=== PATIENT | female | born 1985 | race Hispanic/Latino ===

== ENCOUNTER → 2023-11-15 | Emergency (ER) | payer OTHER ==
--- OUTSIDE RECORDS SUMMARY | 2023-11-15 14:39 | XMS REPORT | Continuity of Care Document ---
Author Name Unknown Address [address] [facility] [address] [place] [address] [facility] Address [address] [facility] [address] [place] [address] Care Team Providers Care Tooth Clerk Name Role Phone Stacey Annie MURPHY Primary Care Physician Zeinab Granado Attending Clinician Unavailable LORENA WOODY Attending Clinician Unavailable DANIA LAKE Attending Clinician Unavailable DANIA LAKE Attending Clinician Unavailable MONSERRAT DONG Attending Clinician Unavailable Srinivasan Castillo PT Attending Clinician Unavailable Monserrat Dong MD Attending Clinician [phone] Dominga Wolff Attending Clinician [phone] Unknown, Attending Attending Clinician Unavailab DOMINGA Cardona Attending Clinician Unavailable Doctor Unassigned, [place] Attending Clinician [facility] RADIOLOGY Attending Clinician Unavailable Radiology Attending Clinician Unavailable LORENA WOODY Admitting Clinician Unavailable JAMILAH, LEANDRA Admitting Clinician Unavailable Payers Payer Name Policy Type Policy Number Effective Date Expirati on Date Source [place] [employer] [id number] 2023 00:00:00 Problems Condition Name Condition Details Condition Category Status Onset Date Resolution Date Last Treatment Date Treating Clinician Comments Source 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 01-18 00:00: 00 [facility] [id number] Positive depression screening Problem [facility] [id number] Need for influenza vaccinatio n Problem [facility] [id number] Sciatica of right side Problem [facility] [id number] Obesity (BMI 35.0-39.9 without comorbidit y) Problem [facility] Vitamin D deficiency Vitamin D deficiency Problem [facility] [id number] Moderate major depression Problem [facility] [id number] Plantar fasciitis, right Problem [facility] Allergies, Adverse Reactions, Alerts Allergy Name Allergy Type Status Severity Reaction(s) Onset Date Inactive Date Treating Clinician Comments Source ADHESIVE Drug Class Active Hives 2022-08 00:00: 00 [facility] LATEX, NATURAL RUBBER Drug Class Active Hives 2022-08 00:00: 00 [facility] Adhesive Propensi ty to adverse reaction s Active Itching 2022-08 00:00: 00 [facility] Latex, Natural Rubber Propensi ty to adverse reaction s Active Itching 2022-08 00:00: 00 [facility] PENICILL INS Drug Class Active Other-Cmnt 03-28 00:00: 00 [facility] Penicill ins Propensi ty to adverse reaction s Active Other - See comments 03-28 00:00: 00 Reported severe yeast infection [facility] Penicill ins - CLASS Propensi ty to adverse reaction to drug Active 04-20 00:00: 00 Penicill ins Propensi ty to adverse reaction to drug Active 01-12 00:00: 00 NO KNOWN ALLERGIE S Drug Class Active [facility] Social History Social Habit Start Date Stop Date Quantity Comments Source Gender identity [facility] of [facility] Sex Assigned At [facility] Tobacco use and exposure 2023-03-28 00:00:00 2023-03-28 00:00:00 Smokeless tobacco non-user [facility] History of Social function 2023-03-28 00:00:00 2023-03-28 00:00:00 [facility] Smoking Status Start Date Stop Date Source Tobacco smoking consumption unknown [facility] Never smoked tobacco [facility] Medications Ordered Medication Name Filled Medication Name Start Date Stop Date Current Medication? Ordering Clinician Indication Dosage Frequency Signature (SIG) Comments Components Source meloxicam 15 mg tablet 10-17 00:00: 00 Yes [id number] 15mg Take 1 tablet by mouth as needed for Inflammati on. [facility] meloxicam 15 mg tablet 10-17 00:00: 00 Yes [id number] 15mg Take 1 tablet by mouth as needed for Inflammati on. [facility] gabapentin 100 mg capsule 2022-08 00:00: 00 Yes [id number] 100mg Take 1 capsule by mouth in the morning and 1 capsule at noon and 1 capsule in the evening. [facility] gabapentin 100 mg capsule 2022-08 00:00: 00 Yes [id number] 100mg Take 1 capsule by mouth in the morning and 1 capsule at noon and 1 capsule in the evening. [facility] gabapentin 100 mg capsule 2022-08 00:00: 00 Yes [id number] 100mg Take 1 capsule by mouth in the morning and 1 capsule at noon and 1 capsule in the evening. [facility] gabapentin 100 mg capsule 2022-08 00:00: 00 Yes [id number] 100mg Take 1 capsule by mouth in the morning and 1 capsule at noon and 1 capsule in the evening. [facility] gabapentin 100 mg capsule 2022-08 00:00: 00 Yes [id number] 100mg Take 1 capsule by mouth in the morning and 1 capsule at noon and 1 capsule in the evening. [facility] gabapentin 100 mg capsule 2022-08 2 00:00: 00 Yes [id number] 100mg Take 1 capsule by mouth in the morning and 1 capsule at noon and 1 capsule in the evening. [facility] gabapentin 100 mg capsule 2022-08 2 00:00: 00 Yes [id number] 100mg Take 1 capsule by mouth in the morning and 1 capsule at noon and 1 capsule in the evening. [facility] gabapentin 100 mg capsule 2022-08 2- 00:00: 00 Yes [id number] 100mg Take 1 capsule by mouth in the morning and 1 capsule at noon and 1 capsule in the evening. [facility] azithromyci n 500 mg tablet 2022-08 00:00: 00 07-06 05:59 :00 No [id number] 500mg Take 1 tablet by mouth in the morning for 5 days. [facility] gabapentin 300 mg capsule 2022-08 0- 00:00: 00 Yes [id number] 300mg Take 1 capsule by mouth in the morning and 1 capsule at noon and 1 capsule in the evening. [facility] gabapentin 300 mg capsule 2022-08 0- 00:00: 00 Yes [id number] 300mg Take 1 capsule by mouth in the morning and 1 capsule at noon and 1 capsule in the evening. [facility] gabapentin 300 mg capsule 2022-08 0- 00:00: 00 Yes [id number] 300mg Take 1 capsule by mouth in the morning and 1 capsule at noon and 1 capsule in the evening. [facility] gabapentin 300 mg capsule 2022-08 0- 00:00: 00 Yes [id number] 300mg Take 1 capsule by mouth in the morning and 1 capsule at noon and 1 capsule in the evening. [facility] gabapentin 300 mg capsule 2022-08 0- 00:00: 00 Yes [id number] 300mg Take 1 capsule by mouth in the morning and 1 capsule at noon and 1 capsule in the evening. [facility] gabapentin 300 mg capsule 2022-08 0- 00:00: 00 Yes [id number] 300mg Take 1 capsule by mouth in the morning and 1 capsule at noon and 1 capsule in the evening. [facility] gabapentin 300 mg capsule 2022-08 0- 00:00: 00 Yes [id number] 300mg Take 1 capsule by mouth in the morning and 1 capsule at noon and 1 capsule in the evening. [facility] gabapentin 300 mg capsule 2022-08 0- 00:00: 00 Yes [id number] 300mg Take 1 capsule by mouth in the morning and 1 capsule at noon and 1 capsule in the evening. [facility] gabapentin 300 mg capsule 2022-08 0 00:00: 00 Yes [id number] 300mg Take 1 capsule by mouth in the morning and 1 capsule at noon and 1 capsule in the evening. [facility] gabapentin 300 mg capsule 2022-08 0 00:00: 00 Yes [id number] 300mg Take 1 capsule by mouth in the morning and 1 capsule at noon and 1 capsule in the evening. [facility] gabapentin 300 mg capsule 2022-08 0 00:00: 00 Yes [id number] 300mg Take 1 capsule by mouth in the morning and 1 capsule at noon and 1 capsule in the evening. [facility] gabapentin 300 mg capsule 2022-08 0 00:00: 00 Yes [id number] 300mg Take 1 capsule by mouth in the morning and 1 capsule at noon and 1 capsule in the evening. [facility] meloxicam 15 mg tablet 05-03 14:21: 57 05-03 00:00 :00 No 15mg Take 1 tablet by mouth as needed for Pain (scale 4-6). [facility] meloxicam 15 mg tablet 05-03 14:21: 57 05-03 00:00 :00 No 15mg Take 1 tablet by mouth as needed for Pain (scale 4-6). [facility] meloxicam 15 mg tablet 05-03 00:00: 00 Yes [id number] 15mg Take 1 tablet by mouth as needed for Inflammati on. [facility] meloxicam 15 mg tablet 3-0 05-03 00:00: 00 Yes [id number] 15mg Take 1 tablet by mouth as needed for Inflammati on. [facility] mg tablet 3-0 05-03 00:00: 00 Yes [id number] 15mg Take 1 tablet by mouth as needed for Inflammati on. [facility] meloxicam 15 mg tablet 2022-0 05-03 00:00: 00 Yes [id number] 15mg Take 1 tablet by mouth as needed for Inflammati on. [facility] meloxicam 15 mg tablet 2022-0 05-03 00:00: 00 Yes [id number] 15mg Take 1 tablet by mouth as needed for Inflammati on. [facility] meloxicam 15 mg tablet 3-0 05-03 00:00: 00 Yes [id number] 15mg Take 1 tablet by mouth as needed for Inflammati on. [facility] meloxicam 15 mg tablet 2022-0 05-03 00:00: 00 Yes [id number] 15mg Take 1 tablet by mouth as needed for Inflammati on. [facility] meloxicam 15 mg tablet 2022-0 05-03 00:00: 00 Yes [id number] 15mg Take 1 tablet by mouth as needed for Inflammati on. [facility] meloxicam 15 mg tablet 3-0 05-03 00:00: 00 Yes [id number] 15mg Take 1 tablet by mouth as needed for Inflammati on. [facility] meloxicam 15 mg tablet 3-0 05-03 00:00: 00 Yes [id number] 15mg Take 1 tablet by mouth as needed for Inflammati on. [facility] meloxicam 15 mg tablet 3-0 05-03 00:00: 00 Yes [id number] 15mg Take 1 tablet by mouth as needed for Inflammati on. [facility] meloxicam 15 mg tablet 3-0 05-03 00:00: 00 Yes [id number] 15mg Take 1 tablet by mouth as needed for Inflammati on. [facility] meloxicam 15 mg tablet 3-0 9-05 00:00: 00 Yes [id number] 15mg Take 1 tablet by mouth as needed for Inflammati on. [facility] meloxicam 15 mg tablet 2022-0 9-05 00:00: 00 10-17 00:00 :00 No [id number] 15mg Take 1 tablet by mouth as needed for Inflammati on. [facility] meloxicam 15 mg tablet 2022-0 9-05 00:00: 00 10-17 00:00 :00 No [id number] 15mg Take 1 tablet by mouth as needed for Inflammati on. [facility] gabapentin 100 mg capsule 2022-0 05-03 00:00: 00 06-17 04:59 :00 No [id number] Take 1 capsule by mouth 3 (three) times daily for 7 days, THEN 2 capsules 3 (three) times daily for 7 days, THEN 3 capsules 3 (three) times daily for 30 days. [facility] gabapentin 100 mg capsule 2022-0 05-03 00:00: 06-17 04:59 :00 No [id number] Take 1 capsule by mouth 3 (three) times daily for 7 days, THEN 2 capsules 3 (three) times daily for 7 days, THEN 3 capsules 3 (three) times daily for 30 days. [facility] gabapentin 100 mg capsule 3-0 05-03 00:00: 00 06-17 04:59 :00 No [id number] Take 1 capsule by mouth 3 (three) times daily for 7 days, THEN 2 capsules 3 (three) times daily for 7 days, THEN 3 capsules 3 (three) times daily for 30 days. [facility] gabapentin 100 mg capsule 3-0 9-05 00:00: 05-31 00:00 :00 No [id number] Take 1 capsule by mouth 3 (three) times daily for 7 days, THEN 2 capsules 3 (three) times daily for 7 days, THEN 3 capsules 3 (three) times daily for 30 days. [facility] meloxicam 15 mg tablet 03-28 15:33: 51 Yes 15mg Take 1 tablet by mouth as needed for Pain (scale 4-6). [facility] meloxicam 15 mg tablet 03-28 15:33: 51 Yes 15mg Take 1 tablet by mouth as needed for Pain (scale 4-6). [facility] meloxicam 15 mg tablet 03-28 15:33: 51 Yes 15mg Take 1 tablet by mouth as needed for Pain (scale 4-6). [facility] meloxicam 15 mg tablet 03-28 15:33: 51 Yes 15mg Take 1 tablet by mouth as needed for Pain (scale 4-6). [facility] TAKE 1 TO 2 CAPSULES BY MOUTH EVERY 8 HOURS NEEDED FOR COUGH 3-0 1-09 00:00: 00 No TAKE 1 TO 2 CAPSULES BY MOUTH EVERY 8 HOURS NEEDED FOR COUGH 2021-1 09-27 00:00: 00 No TAKE 1 TO 2 CAPSULES BY MOUTH EVERY 8 HOURS NEEDED FOR COUGH 2-0 04-19 00:00: 00 No 100 TAKE 1 TO 2 CAPSULES BY MOUTH EVERY 8 HOURS NEEDED FOR COUGH 2-0 04-19 00:00: 00 No 100 TAKE 1 TO 2 CAPSULES BY MOUTH EVERY 8 HOURS NEEDED FOR COUGH 2-0 04-19 00:00: 00 No 100 dexamethaso ne 6 mg tablet 2020-08 00:00: 00 No 1mg azithromyci n 250 mg tablet 2020-08 00:00: 00 No mg benzonatate 100 mg capsule 2020-08 00:00: 00 No 12mg Bromfed DM 2 mg-30 mg-10 mg/5 mL oral syrup 2020-08 00:00: 00 No 5mg/5 mL Dose Unknown 2020-08 00:00: 00 No azithromyci n 250 mg tablet 2020-08 00:00: 00 No mg benzonatate 100 mg capsule 2020-08 00:00: 00 No 12mg Bromfed DM 2 mg-30 mg-10 mg/5 mL oral syrup 2020-08 00:00: 00 No 5mg/5 mL Dose Unknown 2020-08 00:00: 00 No azithromyci n 250 mg tablet 2020-08 00:00: 00 No mg benzonatate 100 mg capsule 2020-08 00:00: 00 No 12mg Bromfed DM 2 mg-30 mg-10 mg/5 mL oral syrup 2020-08 00:00: 00 No 5mg/5 mL nitrofurant oin macrocrysta l 100 mg capsule 02-27 00:00: 00 No 1mg nitrofurant oin macrocrysta l 100 mg capsule 02-27 00:00: 00 No 1mg nitrofurant oin macrocrysta l 100 mg capsule 02-27 00:00: 00 No 1mg Macrobid 100 mg capsule 03-21 00:00: 00 No 1mg Macrobid 100 mg capsule 03-21 00:00: 00 No 1mg Macrobid 100 mg capsule 03-21 00:00: 00 No 1mg citalopram 20 mg tablet 02-02 00:00: 00 No 51mg citalopram 20 mg tablet 02-02 00:00: 00 No 51mg citalopram 20 mg tablet 02-02 00:00: 00 No 51mg metronidazo le 500 mg tablet 01-17 00:00: 00 No 1mg metronidazo le 500 mg tablet 01-17 00:00: 00 No 1mg metronidazo le 500 mg tablet 01-17 00:00: 00 No 1mg gabapentin 100 mg capsule 01-12 00:00: 00 No 1mg gabapentin 100 mg capsule 01-12 00:00: 00 No 1mg gabapentin 100 mg capsule 01-12 00:00: 00 No 1mg Gabapentin 300 MG Gabapentin 300 MG No 1{capsu le} TID Gabapentin 300 MG Meloxicam 15 MG Meloxicam 15 MG No 1{table t} QD Meloxicam 15 MG Gabapentin 300 MG Gabapentin 300 MG No 1{capsu le} TID Gabapentin 300 MG Meloxicam 15 MG Meloxicam 15 MG No 1{table t} QD Meloxicam 15 MG Gabapentin 300 MG Gabapentin 300 MG No 1{capsu le} TID Gabapentin 300 MG Meloxicam 15 MG Meloxicam 15 MG No 1{table t} QD Meloxicam 15 MG Gabapentin 300 MG Gabapentin 300 MG No 1{capsu le} TID Gabapentin 300 MG Meloxicam 15 MG Meloxicam 15 MG No 1{table t} QD Meloxicam 15 MG Gabapentin 300 MG Gabapentin 300 MG No 1{capsu le} TID Gabapentin 300 MG Meloxicam 15 MG Meloxicam 15 MG No 1{table t} QD Meloxicam 15 MG Immunizations Ordered Immunization Name Filled Immunization Name Date Status Comments Source Fluarix (IIV4) - SDS - 0.5mL Fluarix (IIV4) - SDS - 0.5mL Unknown Completed [facility] Fluarix (IIV4) - SDS - 0.5mL Fluarix (IIV4) - SDS - 0.5mL Unknown Completed [facility] Fluarix (IIV4) - SDS - 0.5mL Fluarix (IIV4) - SDS - 0.5mL Unknown Completed [facility] Fluarix (IIV4) - SDS - 0.5mL Fluarix (IIV4) - SDS - 0.5mL Unknown Completed [facility] Fluarix (IIV4) - SDS - 0.5mL Fluarix (IIV4) - SDS - 0.5mL Unknown Completed [facility] Vital Signs Vital Name Observation Time Observation Value Comments S prieto Systolic blood pressure 2023-10-17 19:04:00 116 mm[Hg] [facility] Diastolic blood pressure 2023-10-17 19:04:00 78 mm[Hg] [facility] Heart rate 2023-10-17 19:04:00 70 /min [facility] Body height 2023-10-17 19:04:00 160 cm [facility] Body weight 2023-10-17 19:04:00 92.171 kg [facility] BMI 2023-10-17 19:04:00 36.00 kg/m2 [facility] Oxygen saturation in Arterial blood by Pulse oximetry 2023-10-17 19:04:00 98 /min [facility] Systolic blood pressure 2023-08-02 20:24:00 113 mm[Hg] [facility] Diastolic blood pressure 2023-08-02 20:24:00 77 mm[Hg] [facility] Heart rate 2023-08-02 20:24:00 84 /min [facility] Respiratory rate 2023-08-02 20:24:00 18 /min [facility] Body height 2023-08-02 20:24:00 160 cm [facility] Body weight 2023-08-02 20:24:00 90.855 kg [facility] BMI 2023-08-02 20:24:00 35.48 kg/m2 [facility] Oxygen saturation in Arterial blood by Pulse oximetry 2023-08-02 20:24:00 98 /min [facility] height 2023-08-01 15:20:00 63.00 [in_i] Com [facility] weight 2023-08-01 15:20:00 203.2 [lb_av] Co mmon [facility] temperature 2023-08-01 15:20:00 98.1 [degF] Com [facility] bmi 2023-08-01 15:20:00 35.99 kg/m2 Comm on [facility] oximetry 2023-08-01 15:20:00 95 % Commo n [facility] respiratory rate 2023-08-01 15:20:00 15 /min Common [facility] blood pressure systolic 2023-08-01 15:20:00 123 mm[Hg] [facility] blood pressure diastolic 2023-08-01 15:20:00 70 mm[Hg] [facility] height 2023-07-12 09:00:00 63.00 [in_i] Com [facility] weight 2023-07-12 09:00:00 202.6 [lb_av] Co mmon [facility] temperature 2023-07-12 09:00:00 98.2 [degF] Com mon [facility] bmi 2023-07-12 09:00:00 35.89 kg/m2 Comm on [facility] oximetry 2023-07-12 09:00:00 95 % Commo n [facility] respiratory rate 2023-07-12 09:00:00 15 /min [facility] blood pressure systolic 2023-07-12 09:00:00 120 mm[Hg] [facility] blood pressure diastolic 2023-07-12 09:00:00 81 mm[Hg] [facility] Systolic blood pressure 2023-06-30 18:44:00 114 mm[Hg] [facility] Diastolic blood pressure 2023-06-30 18:44:00 81 mm[Hg] [facility] Heart rate 2023-06-30 18:44:00 81 /min [facility] Body temperature 2023-06-30 18:44:00 36.39 Soni [facility] Respiratory rate 2023-06-30 18:44:00 16 /min [facility] Body height 2023-06-30 18:44:00 160 cm [facility] Body weight 2023-06-30 18:44:00 90.583 kg [facility] BMI 2023-06-30 18:44:00 35.38 kg/m2 [facility] Oxygen saturation in Arterial blood by Pulse oximetry 2023-06-30 18:44:00 97 /min [facility] Systolic blood pressure 2023-05-03 18:56:00 109 mm[Hg] [facility] Diastolic blood pressure 2023-05-03 18:56:00 73 mm[Hg] [facility] Heart rate 2023-05-03 18:56:00 64 /min [facility] Body height 2023-05-03 18:56:00 160 cm [facility] Body weight 2023-05-03 18:56:00 91.037 kg [facility] BMI 2023-05-03 18:56:00 35.55 kg/m2 [facility] Systolic blood pressure 2023-03-28 20:29:00 110 mm[Hg] [facility] Diastolic blood pressure 2023-03-28 20:29:00 76 mm[Hg] [facility] Heart rate 2023-03-28 20:29:00 83 /min [facility] Respiratory rate 2023-03-28 20:29:00 18 /min [facility] Body height 2023-03-28 20:29:00 160 cm [facility] Body weight 2023-03-28 20:29:00 90.946 kg [facility] BMI 2023-03-28 20:29:00 35.52 kg/m2 [facility] Oxygen saturation in Arterial blood by Pulse oximetry 2023-03-28 20:29:00 97 /min [facility] BP Systolic 2022-09-02 11:33:00 117 mm[Hg] BP Diastolic 2022-09-02 11:33:00 81 mm[Hg] Weight Measured 2022-09-02 11:33:00 204.60 pounds Height Measured 2022-09-02 11:33:00 64.00 inches Body Temperature 2022-09-02 11:33:00 98.10 degrees Heart Rate 2022-09-02 11:33:00 91.00 /min Respiratory Rate 2022-09-02 11:33:00 18.00 /min BP Systolic 2022-04-20 14:46:00 107 mm[Hg] BP Diastolic 2022-04-20 14:46:00 72 mm[Hg] Weight Measured 2022-04-20 14:46:00 196.60 pounds Height Measured 2022-04-20 14:46:00 64.00 inches Body Temperature 2022-04-20 14:46:00 97.40 degrees Heart Rate 2022-04-20 14:46:00 84.00 /min Respiratory Rate 2022-04-20 14:46:00 BP Systolic 2021-02-27 10:13:00 106 mm[Hg] BP Diastolic 2021-02-27 10:13:00 71 mm[Hg] Weight Measured 2021-02-27 10:13:00 191.60 pounds Height Measured 2021-02-27 10:13:00 64.00 inches Body Temperature 2021-02-27 10:13:00 98.90 degrees Heart Rate 2021-02-27 10:13:00 71.00 /min Respiratory Rate 2021-02-27 10:13:00 Respiratory Rate 2020-10-23 11:06:00 17.00 /min BP Systolic 2020-10-23 11:06:00 125 mm[Hg] BP Diastolic 2020-10-23 11:06:00 77 mm[Hg] Weight Measured 2020-10-23 11:06:00 188.80 pounds Height Measured 2020-10-23 11:06:00 64.00 inches Body Temperature 2020-10-23 11:06:00 98.20 degrees Heart Rate 2020-10-23 11:06:00 63.00 /min BP Systolic 2019-02-15 17:44:00 112 mm[Hg] BP Diastolic 2019-02-15 17:44:00 80 mm[Hg] Weight Measured 2019-02-15 17:44:00 191.00 pounds Height Measured 2019-02-15 17:44:00 64.00 inches Body Temperature 2019-02-15 17:44:00 98.50 degrees Heart Rate 2019-02-15 17:44:00 73.00 /min Respiratory Rate 2019-02-15 17:44:00 BP Systolic 2018-11-20 10:27:00 107 mm[Hg] BP Diastolic 2018-11-20 10:27:00 68 mm[Hg] Weight Measured 2018-11-20 10:27:00 197.40 pounds Height Measured 2018-11-20 10:27:00 64.00 inches Body Temperature 2018-11-20 10:27:00 98.70 degrees Heart Rate 2018-11-20 10:27:00 75.00 /min Respiratory Rate 2018-11-20 10:27:00 16.00 /min BP Systolic 2018-09-01 08:44:00 113 mm[Hg] BP Diastolic 2018-09-01 08:44:00 66 mm[Hg] Weight Measured 2018-09-01 08:44:00 193.40 pounds Height Measured 2018-09-01 08:44:00 64.00 inches Body Temperature 2018-09-01 08:44:00 98.00 degrees Heart Rate 2018-09-01 08:44:00 61.00 /min Respiratory Rate 2018-09-01 08:44:00 16.00 /min BP Systolic 2018-03-21 08:06:00 122 mm[Hg] BP Diastolic 2018-03-21 08:06:00 81 mm[Hg] Weight Measured 2018-03-21 08:06:00 192.40 pounds Height Measured 2018-03-21 08:06:00 64.00 inches Body Temperature 2018-03-21 08:06:00 98.20 degrees Heart Rate 2018-03-21 08:06:00 73.00 /min Respiratory Rate 2018-03-21 08:06:00 16.00 /min BP Systolic 2018-03-09 11:35:00 109 mm[Hg] BP Diastolic 2018-03-09 11:35:00 73 mm[Hg] Weight Measured 2018-03-09 11:35:00 188.80 pounds Height Measured 2018-03-09 11:35:00 64.00 inches Body Temperature 2018-03-09 11:35:00 98.80 degrees Heart Rate 2018-03-09 11:35:00 78.00 /min Respiratory Rate 2018-03-09 11:35:00 16.00 /min BP Systolic 2017-02-02 09:14:00 113 mm[Hg] BP Diastolic 2017-02-02 09:14:00 73 mm[Hg] Weight Measured 2017-02-02 09:14:00 190.80 pounds Height Measured 2017-02-02 09:14:00 64.00 inches Body Temperature 2017-02-02 09:14:00 98.10 degrees Heart Rate 2017-02-02 09:14:00 66.00 /min Respiratory Rate 2017-02-02 09:14:00 16.00 /min BP Systolic 2017-01-14 13:22:00 108 mm[Hg] BP Diastolic 2017-01-14 13:22:00 74 mm[Hg] Weight Measured 2017-01-14 13:22:00 187.40 pounds Height Measured 2017-01-14 13:22:00 64.00 inches Body Temperature 2017-01-14 13:22:00 98.50 degrees Heart Rate 2017-01-14 13:22:00 73.00 /min Respiratory Rate 2017-01-14 13:22:00 Procedures Procedure Date / Time Performed Performing Clinicia n Source EMG/NCV 2023-09-30 06:01:00 Keaton Soria [facility] POCT SARS-COV-2 ANTIGEN (BINAX NOW) 2023-06-30 18:56:00 Dominga Martinez [facility] POCT MOLECULAR STREP 2023-06-30 18:48:00 Lauren, Uday martinez [facility] REFERRAL- REQUEST/RESPONSE 2023-03-16 05:01:00 Doctor Unassigned, [place] [facility] MR LUMBAR SPINE WO CONTRAST 2023-03-15 16:45:00 Requisition, Paper [facility] CONSENT/REFUSAL FOR DIAGNOSIS AND TREATMENT 2023-03-15 15:49:07 Doctor Unassigned, [place] [facility] Plan of Care Planned Activity Planned Date Details Comments Source Goal Plan of Care Note [code = 90607-2] Goal Plan of Care Note [code = 83972-5] Goal Plan of Care Note [code = 88355-6] Goal Plan of Care Note [code = 03072-3] Goal Plan of Care Note [code = 74615-3] Goal Plan of Care Note [code = 12655-7] Goal Plan of Care Note [code = 80006-4] Goal Plan of Care Note [code = 07468-6] Goal Plan of Care Note [code = 96304-8] Goal Plan of Care Note [code = 36697-1] Goal Plan of Care Note [code = 83474-2] Goal Plan of Care Note [code = 19472-7] Goal Plan of Care Note [code = 06081-2] Goal Plan of Care Note [code = 32415-4] Goal Plan of Care Note [code = 10483-2] Goal Plan of Care Note [code = 29051-5] Goal Plan of Care Note [code = 23290-9] Goal Plan of Care Note [code = 76020-0] Goal Plan of Care Note [code = 74923-6] Goal Plan of Care Note [code = 15519-4] Goal Plan of Care Note [code = 27016-4] Goal Plan of Care Note [code = 11296-9] Goal Plan of Care Note [code = 20280-7] Goal Plan of Care Note [code = 48982-1] Goal Plan of Care Note [code = 86556-8] Goal Plan of Care Note [code = 24067-5] Goal Plan of Care Note [code = 92807-2] Goal Plan of Care Note [code = 21541-8] Goal Plan of Care Note [code = 85590-3] Goal Plan of Care Note [code = 78720-9] Goal Plan of Care Note [code = 18040-2] Goal Plan of Care Note [code = 83292-7] Goal Plan of Care Note [code = 71639-7] Goal Plan of Care Note [code = 08428-7] Goal Plan of Care Note [code = 88185-6] Goal Plan of Care Note [code = 57067-2] Goal Plan of Care Note [code = 05376-1] Goal Plan of Care Note [code = 16718-5] Goal Plan of Care Note [code = 53081-6] Goal Plan of Care Note [code = 60053-9] Goal Plan of Care Note [code = 43820-7] Goal Plan of Care Note [code = 63549-2] Goal Plan of Care Note [code = 37804-6] Goal Plan of Care Note [code = 40600-9] Goal Plan of Care Note [code = 19885-4] Goal Plan of Care Note [code = 72218-4] Goal Plan of Care Note [code = 66292-8] Goal Plan of Care Note [code = 69069-7] Goal Plan of Care Note [code = 78134-8] Goal Plan of Care Note [code = 03677-0] Goal Plan of Care Note [code = 72315-6] Goal Plan of Care Note [code = 29259-2] Goal Plan of Care Note [code = 21891-0] Goal Plan of Care Note [code = 45104-2] Goal Plan of Care Note [code = 91285-3] Goal Plan of Care Note [code = 49141-6] Goal Plan of Care Note [code = 91829-8] Goal Plan of Care Note [code = 07622-2] Goal Plan of Care Note [code = 63955-8] Goal Plan of Care Note [code = 54422-0] Goal Plan of Care Note [code = 21788-6] Goal Plan of Care Note [code = 08840-2] Goal Plan of Care Note [code = 01558-0] Goal Plan of Care Note [code = 38392-4] Goal Plan of Care Note [code = 84667-5] Goal Plan of Care Note [code = 88425-4] Goal Plan of Care Note [code = 66572-0] Goal Plan of Care Note [code = 35908-3] Goal Plan of Care Note [code = 50564-1] Goal Plan of Care Note [code = 40064-7] Goal Plan of Care Note [code = 92414-1] Goal Plan of Care Note [code = 18220-5] Goal Plan of Care Note [code = 18940-5] Goal Plan of Care Note [code = 86622-4] Goal Plan of Care Note [code = 07979-9] Goal Plan of Care Note [code = 41495-9] Goal Plan of Care Note [code = 20244-1] Goal Plan of Care Note [code = 45289-9] Goal Plan of Care Note [code = 92280-8] Goal Plan of Care Note [code = 19905-2] Goal Plan of Care Note [code = 10820-0] Encounters Start Date/Time End Date/Time Encounter Type Admission Type Attending [facility] Facility Care Department Encounter ID Source 2023-07-29 09:04:00 [place]patient [place] [facility] [id number] [facility] 2023-07-13 09:35:00 Outpatient LoyZeinab STLC [facility] [id number] [facility] 2023-07-12 08:28:00 Outpatient Loy Zeinab [facility] [id number] [facility] 2023-07-07 14:19:00 Outpatient STLC [facility] [id number] [facility] 2023-02-16 15:24:00 Outpatient STLMLC ST[facility] [id number] [facility] 2023-10-18 00:00:00 2023-10-18 00:00:00 (TEL) STLMLC ST[facility]C [id number] [facility] 2023-10-17 13:00:00 2023-10-17 13:45:22 Outpatient R [facility] [id number] [facility] 2023-10-17 13:00:00 2023-10-17 13:45:22 [facility] 1.2.840.114 350.1.13.10 4.2.7.2.686 [id number] [facility] 2023-10-04 00:00:00 2023-10-04 00:00:00 [facility] 1..840.114 350.1.13.10 4.2.7.2.686 [id number] [facility] 2023-09-30 12:05:56 2023-09-30 23:59:00 Outpatient R JAYA, CHELSIEDigna JAYA [facility] [id number] [facility] 2023-09-30 12:05:56 2023-09-30 23:59:00 Hospital Encounter Jaya [facility] 1.2.840.114 350.1.13.10 4.2.7.2.686 [id number] [facility] 2023-09-08 00:00:00 2023-09-08 00:00:00 [facility] 1..840.114 350.1.13.10 4.2.7.2.686 [id number] [facility] 2023-09-02 11:09:58 2023-09-02 11:09:58 Outpatient SFA [facility] [id number] Juanjose Bailey 2023-08-02 14:00:00 2023-08-02 14:30:00 Office Visit Annalise [facility] 1.2.840.114 350.1.13.10 4.2.7.2.686 [id number] [facility] 2023-08-02 14:00:00 2023-08-02 14:00:00 Outpatient R ANNALISE [facility] [id number] [facility] 2023-08-02 00:00:00 2023-08-02 00:00:00 Telephone [facility] 1.2.840.114 350.1.13.10 4.2.7.2.686 [id number] [facility] 2023-08-01 00:00:00 2023-08-01 00:00:00 PREV VISIT EST AGE 18-39 STLMLC STLMLC [id number] [facility] 2023-07-18 00:00:00 2023-07-18 00:00:00 (TEL) STLMLC STLMLC [id number] [facility] 2023-07-12 00:00:00 2023-07-12 00:00:00 OFFICE VISIT NEW PT LEVEL 3 STLMLC STLMLC [id number] [facility] 2023-07-11 10:30:00 2023-07-11 12:02:00 Outpatient MONSERRAT ACRLISLE [facility] [id number] [facility] 2023-07-11 10:30:00 2023-07-11 11:15:00 Ancillary Visit Srinivasan Castillo Brian A [facility] 1..840.114 350.1.13.10 4.2.7.2.686 [id number] [facility] 2023-06-30 13:20:00 2023-06-30 13:40:00 Urgent Care Dominga Martinez Unknown, Attending [facility] 1..840.114 350.1.13.10 4.2.7.2.686 [id number] [facility] 2023-06-30 13:20:00 2023-06-30 13:20:00 Outpatient R DOMINGA MARTINEZ [facility] [id number] [facility] 2023-06-13 14:30:00 2023-06-13 15:29:40 Outpatient MONSERRAT CARLISLE [facility] [id number] [facility] 2023-06-13 14:30:00 2023-06-13 15:15:00 Ancillary Visit Srinivasan Castillo Brian A [facility] 1..840.114 350.1.13.10 4.2.7.2.686 [id number] [facility] 2023-05-30 00:00:00 2023-05-30 00:00:00 Michael Woody Lorena [facility] 1..840.114 350.1.13.10 4.2.7.2.686 [id number] [facility] 2023-05-16 13:45:00 2023-05-16 14:48:24 Outpatient MONSERRAT CARLISLE [facility] [id number] [facility] 2023-05-16 13:45:00 2023-05-16 14:48:24 Ancillary Visit Srinivasan Castillo Brian A [facility] 1..840.114 350.1.13.10 4.2.7.2.686 [id number] [facility] 2023-05-03 14:00:00 2023-05-03 14:25:35 [facility] [id number] [facility] 2023-05-03 14:00:00 2023-05-03 14:25:35 [facility] 1.84.114 350.1.13.10 4.2.7.2.686 [id number] [facility] 2023-04-25 13:45:00 2023-04-25 14:30:00 Ancillary Visit Srinivasan Castillo Brian A [facility] 1.84.114 350.1.13.10 4.2.7.2.686 [id number] [facility] 2023-04-25 13:45:00 2023-04-25 13:45:00 Outpatient MONSERRAT CARLISLE [facility] [id number] [facility] 2023-04-06 15:15:00 2023-04-06 16:00:00 Ancillary Visit Srinivasan Castillo Brian A [facility] 1.840.114 350.1.13.10 4.2.7.2.686 [id number] [facility] 2023-03-28 15:00:00 2023-03-28 16:11:48 Outpatient R ANNALISELORENA [facility] [id number] [facility] 2023-03-28 15:00:00 2023-03-28 16:11:48 [facility] 1.84.114 350.1.13.10 4.2.7.2.686 [id number] [id number] [facility] 2023-03-16 00:00:00 2023-03-16 00:00:00 Orders Only Doctor Unassigned, [place] [facility] 1.114 350.1.13.10 4.2.7.2.686 [id number] [facility] 2023-03-15 10:52:21 2023-03-15 23:59:00 Outpatient R RADIOLOGY [facility] [id number] [facility] 2023-03-15 10:52:21 2023-03-15 23:59:00 Hospital Encounter Radiology [facility] 1.2.840.114 350.1.13.10 4.2.7.2.686 [id number] [facility] 2023-03-15 00:00:00 2023-03-15 00:00:00 Orders Only Doctor Unassigned, [place] [facility] 1.2.840.114 350.1.13.10 4.2.7.2.686 [id number] [facility] 2023-02-16 16:47:52 2023-02-16 16:47:52 Outpatient SFA SFA 0621 Juanjose Romero Leo 2023-01-31 10:55:55 2023-01-31 10:55:55 Outpatient SFA SFA [id number] Juanjose Romero Leo 2022-12-22 11:16:05 2022-12-22 11:16:05 Outpatient SFA SFA 0426 Juanjose Romero [place] 2022-12-21 14:56:28 2022-12-21 14:56:28 Outpatient SFA SFA [id number] Juanjose Romero Leo 2022-12-10 15:28:24 2022-12-10 15:28:24 Outpatient SFA SFA [id number] Juanjose Bailey 2022-09-14 14:39:16 2022-09-14 14:39:16 Outpatient SFA SFA [id number] Juanjose Bailey 2022-09-08 10:53:01 2022-09-08 10:53:01 Outpatient SFA SFA [id number] Juanjose Romero Leo 2022-09-07 13:30:41 2022-09-07 13:30:41 Outpatient SFA SFA [id number] Juanjose Bailey 2022-09-06 18:20:07 2022-09-06 18:20:07 Outpatient [facility] [id number] Juanjose Bailey 2022-09-06 00:00:00 2022-09-06 00:00:00 Outpatient Visit [id number] 2022-09-02 11:26:41 2022-09-02 11:26:41 Outpatient [facility] [id number] Juanjose Bailey 2022-09-02 00:00:00 2022-09-02 00:00:00 Outpatient Visit [id number] 00:00:00 2022-04-20 00:00:00 Outpatient Visit [id number] 2018-12-08 09:00:00 2018-12-08 09:00:00 Outpatient [facility] [id number] [facility] Results Test Description Test Time Test Comments Results Result Co mments Source CBC (INCLUDES DIFF/PLT)2023-08-05 00:00:00* Test Item Value Reference Range Interpretation Comme nts ABSOLUTE BASOPHILS (test code = 704-7) 49 cells/uL See_Comment N [Automated m essage] The system which generated this result transmitted reference range: 0-200 cells/uL. The reference range was not used to interpret this result as normal/abnormal. ABSOLUTE EOSINOPHILS (test code = 711-2) 194 cells/uL See_Comment N [Automated m essage] The system which generated this result transmitted reference range: 15-500 cells/uL. The reference range was not used to interpret this result as normal/abnormal. ABSOLUTE LYMPHOCYTES (test code = 731-0) 3424 cells/uL See_Comment N [Automated m essage] The system which generated this result transmitted reference range: 850-3900 cells/uL. The reference range was not used to interpret this result as normal/abnormal. ABSOLUTE MONOCYTES (test code = 742-7) 844 cells/uL See_Comment N [Automated m essage] The system which generated this result transmitted reference range: 200-950 cells/uL. The reference range was not used to interpret this result as normal/abnormal. ABSOLUTE NEUTROPHILS (test code = 751-8) 5190 cells/uL See_Comment N [Automated m essage] The system which generated this result transmitted reference range: 7623-3316 cells/uL. The reference range was not used to interpret this result as normal/abnormal. BASOPHILS (test code = 706-2) 0.5 % N EOSINOPHILS (test code = 713-8) 2.0 % N HEMATOCRIT (test code = 4544-3) 41.0 % See_Comment N [Automated messa ge] The system which generated this result transmitted reference range: 35.0-45.0 %. The reference range was not used to interpret this result as normal/abnormal. HEMOGLOBIN (test code = 718-7) 13.7 g/dL See_Comment N [Automated messa ge] The system which generated this result transmitted reference range: 11.7-15.5 g/dL. The reference range was not used to interpret this result as normal/abnormal. LYMPHOCYTES (test code = 736-9) 35.3 % N MCH (test code = 785-6) 29.1 pg See_Comment N [Automated messa ge] The system which generated this result transmitted reference range: 27.0-33.0 pg. The reference range was not used to interpret this result as normal/abnormal. MCHC (test code = 786-4) 33.4 g/dL See_Comment N [Automated messa ge] The system which generated this result transmitted reference range: 32.0-36.0 g/dL. The reference range was not used to interpret this result as normal/abnormal. MCV (test code = 787-2) 87.2 fL See_Comment N [Automated messa ge] The system which generated this result transmitted reference range: 80.0-100.0 fL. The reference range was not used to interpret this result as normal/abnormal. MONOCYTES (test code = 5905-5) 8.7 % N MPV (test code = 776-5) 10.8 fL See_Comment N [Automated messa ge] The system which generated this result transmitted reference range: 7.5-12.5 fL. The reference range was not used to interpret this result as normal/abnormal. NEUTROPHILS (test code = 770-8) 53.5 % N PLATELET COUNT (test code = 777-3) 338 Thousand/uL See_Comment N [Automated message] The system which generated this result transmitted reference range: 140-400 Thousand/uL. The reference range was not used to interpret this result as normal/abnormal. RDW (test code = 788-0) 12.9 % See_Comment N [Automated messa ge] The system which generated this result transmitted reference range: 11.0-15.0 %. The reference range was not used to interpret this result as normal/abnormal. RED BLOOD CELL COUNT (test code = 789-8) 4.70 Million/uL See_Comment N [Automated message] The system which generated this result transmitted reference range: 3.80-5.10 Million/uL. The reference range was not used to interpret this result as normal/abnormal. WHITE BLOOD CELL COUNT (test code = 6690-2) 9.7 Thousand/uL See_Comment N [Automated message] The system which generated this result transmitted reference range: 3.8-10.8 Thousand/uL. The reference range was not used to interpret this result as normal/abnormal. LIPID [id number] 00:00:00* Test Item Value Reference Range Interpretation Comme nts CHOL/HDLC RATIO (test code = 9830-1) 3.3 (calc) See_Comment N [Automated messa ge] The system which generated this result transmitted reference range: <5.0 (calc). The reference range was not used to interpret this result as normal/abnormal. CHOLESTEROL, TOTAL (test code = 2093-3) 181 mg/dL See_Comment N [Automated message] The system which generated this result transmitted reference range: <200 mg/dL. The reference range was not used to interpret this result as normal/abnormal. HDL CHOLESTEROL (test code = 2085-9) 55 mg/dL See_Comment N [Automated [employer]] The system which generated this result transmitted reference range: > OR = 50 mg/dL. The reference range was not used to interpret this result as normal/abnormal. LDL-CHOLESTEROL (test code = 64949-9) 113 mg/dL (calc) H NON HDL CHOLESTEROL (test code = 32460-5) 126 mg/dL (calc) See_Comment N [Automated message] The system which generated this result transmitted reference range: <130 mg/dL (calc). The reference range was not used to interpret this result as normal/abnormal. TRIGLYCERIDES (test code = 2571-8) 43 mg/dL See_Comment N [Automated [employer]] The system which generated this result transmitted reference range: <150 mg/dL. The reference range was not used to interpret this result as normal/abnormal. [id number] 00:00:00* Test Item Value Reference Range Interpretation Comme [facility] TSH (test code = 3016-3) 1.17 mIU/L N PAP TEST, THINPREP, IMAGED REFLEX HPV HIGH RISK IF [id number] 00:00:00* Test Item Value Reference Range Interpretation Comme [facility] CPT: (test code = 05577-6) (NOTE) ART INSTRUCTOR: (test code = 92421-2) AMEE Gonzalez(ASCP)IAC HPV HIGH RISK IF ASC/LSIL, THINPREP (test code = 85159-2) CRITERIA NOT MET LMP: (test code = 8665-2) NOT GIVEN SLIDES: (test code = 56069-3) 1 SOURCE: (test code = 99975-1) Unspecified SPECIMEN ADEQUACY: (test code = 84116-3) (NOTE) POCT SARS-COV-2 ANTIGEN (BINAX NOW)2023-06-30 18:56:00* Test Item Value Reference Range Interpretation Comme [facility] POCT SARS-COV-2 ANTIGEN (arely t code = 03088-6) Not Detected Not Detected On board controls acceptable with C Line (test code = 3574) Yes [facility] MOLECULAR [id number] 18:54:44* Test Item Value Reference Range Interpretation Comme [facility] POCT Molecular Strep (test c ode = 81224-8) Positive Negative A Lab Interpretation (test cod e = 55415-5) Abnormal [id number] 05:33:47* Test Item Value Reference Range Interpretation Comme [facility] VITAMIN B-12 (test code = 2840) 922 PG/ML 200-950 UNLESS OTHERWISE INDICATED, ALL TESTING PERFORMED AT [facility] [address] [place] [address] FORMING MACHINE UPKEEP MECHANIC: RAFAELA PENDLETON M.D. CLIA NUMBER [id number] [place]. [id number] VITAMIN [id number] 16:43:54* Test Item Value Reference Range Interpretation Comme [facility] VITAMIN B-6 (test code = 4956) 83 nmol/L 20-125 This test was de veloped and its performance characteristicsdetermined by [facility] ([facility]). It has not beencleared or approved by the U.S. Food and Drug Administration (FDA).The FDA has determined that such clearance or approval is notnecessary. This test is used for clinical purposes and should not beregarded as investigational or for research. [facility] is qualified toperform high complexity testing under the Clinical LaboratoryImprovement Amendments (CLIA). TESTING PERFORMED AT [facility] [address] [place] [address], [facility] [address] [address] CLIA NO: [id number] [facility] has important pathology staff changes effective 10/27/2022. New pathology staff will provide uninterrupted, excellent patient care and clinical consultation. See URL: [email or web address]. UNLESS OTHERWISE INDICATED, ALL TESTING PERFORMED AT [facility] [address] [place] [address] FORMING MACHINE UPKEEP MECHANIC: RAFAELA PENDLETON M.D. CLIA NUMBER [id number] [place]. [id number] VITAMIN [id number] 00:23:42* Test Item Value Reference Range Interpretation Comme [facility] VITAMIN B-12 (test code = 2840) 1378 PG/ML 200-950 H HEMOGLOBIN [id number] 08:52:39* Test Item Value Reference Range Interpretation Comme [facility] HEMOGLOBIN A1c (test code = 76230) 5.5 % 4.2-5.6 VITAMIN D, 25 [id number] 02:47:52* Test Item Value Reference Range Interpretation Comme [facility] VITAMIN D, 25 OH (test code = 4958) 34 NG/ML SEE BELOW EFFECTIVE 04/2023, PLEASE NOTE NEW METHODOLOGY IS ELECTROCHEMILUMINESCENCE BINDING ASSAY. NOTE: 25-HYDROXYVITAMIN D ASSAY INCLUDES 25-HYDROXYVITAMIN D2 AND D3. INTERPRETIVE RANGES PEDIATRIC (<17 YEARS) . . . . . . . . . . . NG/ML 20-100ADULT: INSUFFICIENT . . . . . . . . . . . . . . NG/ML <20 SUBOPTIMAL . . . . . . . . . . . . . . . NG/ML 20-29 OPTIMAL . . . . . . . . . . . . . . . . . NG/ML 30-100 TSH, THIRD [id number] 02:47:23* Test Item Value Reference Range Interpretation Comme [facility] TSH, THIRD GENERATION (test code = 2821) 1.070 UIU/ML 0.400-4.100 LIPID [id number] 23:59:25* Test Item Value Reference Range Interpretation Comme nts CHOLESTEROL (test code = 2210) 211 MG/DL <200 H TRIGLYCERIDES (test code = 2232) 91 MG/DL <150 HDL CHOLESTEROL (test code = 2220) 58 MG/DL >39 CALC LDL CHOL (test code = 2237) 134 MG/DL <100 H NOTE: CALCULATED LDL IS BASED ON AZRA-ENGEL METHOD WHICHINCLUDES ADJUSTABLE TRIGLYCERIDE:VLDL CHOLESTEROL RATIO.THIS FACTOR VARIES BY MEASURED TRIGLYCERIDE AND NON-HDLCHOLESTEROL CONCENTRATIONS WITH INCREASED CALCULATED LDL SEENIN HIGHER TRIGLYCERIDE OR LOWER NON-HDL SPECIMENS. FOR MOREINFORMATION, SEE CLIENT ANNOUNCEMENT AT [email or web address] RISK RATIO LDL/HDL (test code = 2238) 2.31 RATIO <3.22 COMPREHENSIVE METABOLIC [id number] 23:59:25* Test Item Value Reference Range Interpretation Comme nts GLUCOSE (test code = 2217) 90 MG/DL 70-99 BUN (test code = 2208) 11 MG/DL 6-20 CREATININE (test code = 2214) 0.58 MG/DL 0.60-1.30 L eGFR (2020 CKD-EPI) (test code = ) 119 ML/MIN/1.73 >60 CALC BUN/CREAT (test code = 2234) 19 RATIO 6-28 SODIUM (test code = 2230) 138 MEQ/L 133-146 POTASSIUM (test code = 2227) 4.4 MEQ/L 3.5-5.4 CHLORIDE (test code = 2214) 102 MEQ/L 95-107 CARBON DIOXIDE (test code = 2205) 21 MEQ/L 19-31 CALCIUM (test code = 2208) 10.1 MG/DL 8.5-10.5 PROTEIN, TOTAL (test code = 2228) 7.8 G/DL 6.1-8.3 ALBUMIN (test code = 2200) 4.8 G/DL 3.5-5.2 CALC GLOBULIN (test code = 2239) 3.0 G/DL 1.9-3.7 CALC A/G RATIO (test code = 2233) 1.6 RATIO 1.0-2.6 BILIRUBIN, TOTAL (test code = 2206) 0.3 MG/DL See_Comment [Automated me ssage] The system which generated this result transmitted reference range: <=1.2. The reference range was not used to interpret this result as normal/abnormal. ALKALINE PHOSPHATASE (test code = 2203) 74 U/L 40-112 AST (test code = 2217) 19 U/L 9-40 ALT (test code = 2218) 25 U/L 5-40 CBC W/AUTO DIFF WITH [id number] 03:37:30* Test Item Value Reference Range Interpretation Comme nts WBC (test code = 1001) 11.7 K/UL 3.5-11.0 H RBC (test code = 1002) 4.85 M/UL 3.80-5.40 HEMOGLOBIN (test code = 1003) 14.6 G/DL 11.5-15.5 HEMATOCRIT (test code = 1004) 43.3 % 34.0-45.0 MCV (test code = 1005) 89.3 fL 80.0-99.0 MCH (test code = 1006) 30.1 PG 25.0-33.0 MCHC (test code = 1007) 33.7 G/DL 31.0-36.0 RDW (test code = 1038) 12.7 % 11.5-15.0 NEUTROPHILS (test code = 1008) 56.7 % LYMPHOCYTES (test code = 1010) 32.5 % MONOCYTES (test code = 1011) 7.5 % EOSINOPHILS (test code = 1012) 2.3 % BASOPHILS (test code = 1013) 0.5 % IMMATURE GRANULOCYTES (test code = 1036) 0.5 % NUCLEATED RBCS (test code = 1065) 0.0 /100 WBC'S See_Comment [Automated message] The system which generated this result transmitted reference range: 0.0. The reference range was not used to interpret this result as normal/abnormal. PLATELET COUNT (test code = 1015) 331 K/UL 130-400 ABSOLUTE NEUTROPHILS (test code = 1066) 6.65 K/UL 1.50-7.50 ABSOLUTE LYMPHOCYTES (test code = 1067) 3.81 K/UL 1.00-4.00 ABSOLUTE MONOCYTES (test code = 1068) 0.88 K/UL 0.20-1.00 ABSOLUTE EOSINOPHILS (test code = 1040) 0.27 K/UL 0.00-0.50 ABSOLUTE BASOPHILS (test code = 1069) 0.06 K/UL 0.00-0.20 ABS IMMATURE GRANULOCYTES (test code = 1020) 0.06 K/UL 0.00-0.10 ABS NUCLEATED RBCS (test code = 54382) 0.00 K/UL 0.00-0.11 [facility] has important pathology staff changes effective 10/27/2022. New pathology staff will provide uninterrupted, excellent patient care and clinical consultation. See URL: [email or web address]. UNLESS OTHERWISE INDICATED, ALL TESTING PERFORMED AT [facility] [employer] [address] [place] [id number] [employer]MING MACHINE UPKEEP MECHANIC: RAFAELA PENDLETON M.D. CLIA NUMBER [id number] [place] [id number] CULTURE, [id number] 08:06:45SPECIMEN NUMBER: [id number] CULTURE, URINE SPECIMEN NUMBER: [id number] SPECIMEN COMMENT: URINE SOURCE: URINE REPORT STATUS: FINAL FINAL REPORT: 04/22/2022 >100,000 CFU/ML UROGENITAL IRIS PRESENT NOCOMMON PATHOGENS UNLESS OTHERWISE INDICATED, ALL TESTING PERFORMED [facility] [address] [place] [address] FORMING MACHINE UPKEEP MECHANIC: MASOUD MATUTE M.D. [place] NUMBER [id number] [facility] [place]. [id number], [id number] 00:00:00* Test Item Value Reference Range Interpretation Comme nts CULTURE, URINE (test code = 05462) SPECIMEN NUMBER: [id number] CULTURE, [id number] 00:00:00* Test Item Value Reference Range Interpretation Comme nts CULTURE, URINE (test code = 02515) SPECIMEN NUMBER: [id number] CULTURE, [id number] 00:00:00* Test Item Value Reference Range Interpretation Comme nts CULTURE, URINE (test code = 39527) SPECIMEN NUMBER: [id number] CULTURE, [id number] 00:00:00* Test Item Value Reference Range Interpretation Comme nts CULTURE, URINE (test code = 85323) SPECIMEN NUMBER: [id number] GC AND CHLAMYDIA, AMPLIFIED, [id number] 00:00:00* Test Item Value Reference Range Interpretation Comme nts GONORRHEA, NAAT (test code = 65387) NEGATIVE CHLAMYDIA, NAAT (test code = 34550) NEGATIVE GC AND CHLAMYDIA, AMPLIFIED, [id number] 00:00:00* Test Item Value Reference Range Interpretation Comme nts GONORRHEA, NAAT (test code = 89976) NEGATIVE CHLAMYDIA, NAAT (test code = 11504) NEGATIVE GC AND CHLAMYDIA, AMPLIFIED, [id number] 00:00:00* Test Item Value Reference Range Interpretation Comme nts GONORRHEA, NAAT (test code = 21721) NEGATIVE CHLAMYDIA, NAAT (test code = 33106) NEGATIVE GC AND CHLAMYDIA, AMPLIFIED, [id number] 00:00:00* Test Item Value Reference Range Interpretation Comme nts GONORRHEA, NAAT (test code = 88986) NEGATIVE CHLAMYDIA, NAAT (test code = 36590) NEGATIVE GC AND CHLAMYDIA, AMPLIFIED, [id number] 00:00:00* Test Item Value Reference Range Interpretation Comme nts GONORRHEA, NAAT (test code = 58532) NEGATIVE CHLAMYDIA, NAAT (test code = 98043) NEGATIVE GC AND CHLAMYDIA, AMPLIFIED, [id number] 00:00:00* Test Item Value Reference Range Interpretation Comme nts GONORRHEA, NAAT (test code = 76933) NEGATIVE CHLAMYDIA, NAAT (test code = 62149) NEGATIVE CULTURE, [id number] 00:00:00* Test Item Value Reference Range Interpretation Comme nts CULTURE, URINE (test code = 07448) SPECIMEN NUMBER: [id number] CULTURE, [id number] 00:00:00* Test Item Value Reference Range Interpretation Comme nts CULTURE, URINE (test code = 13650) SPECIMEN NUMBER: [id number] CULTURE, [id number] 00:00:00* Test Item Value Reference Range Interpretation Comme nts CULTURE, URINE (test code = 65442) SPECIMEN NUMBER: [id number] CULTURE, [id number] 00:00:00* Test Item Value Reference Range Interpretation Comme nts CULTURE, URINE (test code = 21523) SPECIMEN NUMBER: [id number] CULTURE, [id number] 00:00:00* Test Item Value Reference Range Interpretation Comme nts CULTURE, URINE (test code = 21953) SPECIMEN NUMBER: [id number] CULTURE, [id number] 00:00:00* Test Item Value Reference Range Interpretation Comme nts CULTURE, URINE (test code = 50047) SPECIMEN NUMBER: [id number] HIV AB/AG COMBO RFLX [id number] 00:00:00* Test Item Value Reference Range Interpretation Comme nts HIV 1/2 4TH GEN, RFLX CONF ( test code = 3514) NON-REACTIVE HIV AB/AG COMBO RFLX [id number] 00:00:00* Test Item Value Reference Range Interpretation Comme nts HIV 1/2 4TH GEN, RFLX CONF ( test code = 3514) NON-REACTIVE ACUTE HEPATITIS [id number] 00:00:00* Test Item Value Reference Range Interpretation Comme nts HEPATITIS A IgM (test code = 85070) NON-REACTIVE HEPATITIS B CORE IgM (test c ode = 4644) NON-REACTIVE HEPATITIS B SURF AG (test co de = 2739) NON-REACTIVE HEPATITIS C ANTIBODY (test c ode = 4675) NON-REACTIVE INTERPRETATION HEPATITIS A: (test code = 2552) (NOTE) INTERPRETATION HEPATITIS B: (test code = 55218) (NOTE) INTERPRETATION HEPATITIS C: (test code = 57585) (NOTE) ACUTE HEPATITIS [id number] 00:00:00* Test Item Value Reference Range Interpretation Comme nts HEPATITIS A IgM (test code = 27139) NON-REACTIVE HEPATITIS B CORE IgM (test c ode = 4644) NON-REACTIVE HEPATITIS B SURF AG (test co de = 2739) NON-REACTIVE HEPATITIS C ANTIBODY (test c ode = 4675) NON-REACTIVE INTERPRETATION HEPATITIS A: (test code = 2552) (NOTE) INTERPRETATION HEPATITIS B: (test code = 33320) (NOTE) INTERPRETATION HEPATITIS C: (test code = 57302) (NOTE) [id number] 00:00:00* Test Item Value Reference Range Interpretation Comme nts RPR RESULT (test code = 3501) NON-REACTIVE RPR TITER (test code = 3500) NOT INDIC. TITER [id number] 00:00:00* Test Item Value Reference Range Interpretation Comme nts RPR RESULT (test code = 3501) NON-REACTIVE RPR TITER (test code = 3500) NOT INDIC. TITER [id number] 00:00:00* Test Item Value Reference Range Interpretation Comme nts RPR RESULT (test code = 3501) NON-REACTIVE RPR TITER (test code = 3500) NOT INDIC. TITER HIV AB/AG COMBO RFLX [id number] 00:00:00* Test Item Value Reference Range Interpretation Comme nts HIV 1/2 4TH GEN, RFLX CONF ( test code = 3514) NON-REACTIVE HIV AB/AG COMBO RFLX [id number] 00:00:00* Test Item Value Reference Range Interpretation Comme nts HIV 1/2 4TH GEN, RFLX CONF ( test code = 3514) NON-REACTIVE HIV AB/AG COMBO RFLX [id number] 00:00:00* Test Item Value Reference Range Interpretation Comme nts HIV 1/2 4TH GEN, RFLX CONF ( test code = 3514) NON-REACTIVE ACUTE HEPATITIS [id number] 00:00:00* Test Item Value Reference Range Interpretation Comme nts HEPATITIS A IgM (test code = 08964) NON-REACTIVE HEPATITIS B CORE IgM (test c ode = 4644) NON-REACTIVE HEPATITIS B SURF AG (test co de = 2739) NON-REACTIVE HEPATITIS C ANTIBODY (test c ode = 4675) NON-REACTIVE INTERPRETATION HEPATITIS A: (test code = 2552) (NOTE) INTERPRETATION HEPATITIS B: (test code = 84033) (NOTE) INTERPRETATION HEPATITIS C: (test code = 02525) (NOTE) ACUTE HEPATITIS [id number] 00:00:00* Test Item Value Reference Range Interpretation Comme nts HEPATITIS A IgM (test code = 78619) NON-REACTIVE HEPATITIS B CORE IgM (test c ode = 4644) NON-REACTIVE HEPATITIS B SURF AG (test co de = 2739) NON-REACTIVE HEPATITIS C ANTIBODY (test c ode = 4675) NON-REACTIVE INTERPRETATION HEPATITIS A: (test code = 2552) (NOTE) INTERPRETATION HEPATITIS B: (test code = 58683) (NOTE) INTERPRETATION HEPATITIS C: (test code = 11206) (NOTE) [id number] 00:00:00* Test Item Value Reference Range Interpretation Comme nts RPR RESULT (test code = 3501) NON-REACTIVE RPR TITER (test code = 3500) NOT INDIC. TITER [id number] 00:00:00* Test Item Value Reference Range Interpretation Comme nts RPR RESULT (test code = 3501) NON-REACTIVE RPR TITER (test code = 3500) NOT INDIC. TITER [id number] 00:00:00* Test Item Value Reference Range Interpretation Comme nts RPR RESULT (test code = 3501) NON-REACTIVE RPR TITER (test code = 3500) NOT INDIC. TITER HIV AB/AG COMBO RFLX [id number] 00:00:00* Test Item Value Reference Range Interpretation Comme nts HIV 1/2 4TH GEN, RFLX CONF ( test code = 3514) NON-REACTIVE ACUTE HEPATITIS [id number] 00:00:00* Test Item Value Reference Range Interpretation Comme nts HEPATITIS A IgM (test code = 75988) NON-REACTIVE HEPATITIS B CORE IgM (test c ode = 4644) NON-REACTIVE HEPATITIS B SURF AG (test co de = 2739) NON-REACTIVE HEPATITIS C ANTIBODY (test c ode = 4675) NON-REACTIVE INTERPRETATION HEPATITIS A: (test code = 2552) (NOTE) INTERPRETATION HEPATITIS B: (test code = 91723) (NOTE) INTERPRETATION HEPATITIS C: (test code = 73042) (NOTE) ACUTE HEPATITIS [id number] 00:00:00* Test Item Value Reference Range Interpretation Comme nts HEPATITIS A IgM (test code = 24589) NON-REACTIVE HEPATITIS B CORE IgM (test c ode = 4644) NON-REACTIVE HEPATITIS B SURF AG (test co de = 2739) NON-REACTIVE HEPATITIS C ANTIBODY (test c ode = 4675) NON-REACTIVE INTERPRETATION HEPATITIS A: (test code = 2552) (NOTE) INTERPRETATION HEPATITIS B: (test code = 30947) (NOTE) INTERPRETATION HEPATITIS C: (test code = 15700) (NOTE) [id number] 00:00:00* Test Item Value Reference Range Interpretation Comme nts RPR RESULT (test code = 3501) NON-REACTIVE RPR TITER (test code = 3500) NOT INDIC. TITER [id number] 00:00:00* Test Item Value Reference Range Interpretation Comme nts RPR RESULT (test code = 3501) NON-REACTIVE RPR TITER (test code = 3500) NOT INDIC. TITER [id number] 00:00:00* Test Item Value Reference Range Interpretation Comme nts RPR RESULT (test code = 3501) NON-REACTIVE RPR TITER (test code = 3500) NOT INDIC. TITER VAGINAL PATHOGENS DNA [id number] 00:00:00* Test Item Value Reference Range Interpretation Comme nts ELIN SPECIES (test code = 69526) NEGATIVE G. VAGINALIS (test code = 17948) NEGATIVE T. VAGINALIS (test code = 07537) NEGATIVE VAGINAL PATHOGENS DNA [id number] 00:00:00* Test Item Value Reference Range Interpretation Comme nts ELIN SPECIES (test code = 11905) NEGATIVE G. VAGINALIS (test code = 91645) NEGATIVE T. VAGINALIS (test code = 95072) NEGATIVE VAGINAL PATHOGENS DNA [id number] 00:00:00* Test Item Value Reference Range Interpretation Comme nts ELIN SPECIES (test code = 30604) NEGATIVE G. VAGINALIS (test code = 13075) NEGATIVE T. VAGINALIS (test code = 05914) NEGATIVE VAGINAL PATHOGENS DNA [id number] 00:00:00* Test Item Value Reference Range Interpretation Comme nts ELIN SPECIES (test code = 93730) NEGATIVE G. VAGINALIS (test code = 58586) NEGATIVE T. VAGINALIS (test code = 69428) NEGATIVE VAGINAL PATHOGENS DNA [id number] 00:00:00* Test Item Value Reference Range Interpretation Comme nts ELIN SPECIES (test code = ) NEGATIVE G. VAGINALIS (test code = 51459) NEGATIVE T. VAGINALIS (test code = 46666) NEGATIVE VAGINAL PATHOGENS DNA [id number] 00:00:00* Test Item Value Reference Range Interpretation Comme nts ELIN SPECIES (test code = ) NEGATIVE G. VAGINALIS (test code = 96826) NEGATIVE T. VAGINALIS (test code = 70672) NEGATIVE CULTURE, URINE [ADDED]2020-10-25 00:00:00* Test Item Value Reference Range Interpretation Comme nts CULTURE, URINE (test code = 74473) SPECIMEN NUMBER: [id number] CULTURE, URINE [ADDED]2020-10-25 00:00:00* Test Item Value Reference Range Interpretation Comme nts CULTURE, URINE (test code = 18799) SPECIMEN NUMBER: [id number] CULTURE, URINE [ADDED]2020-10-25 00:00:00* Test Item Value Reference Range Interpretation Comme nts CULTURE, URINE (test code = 39103) SPECIMEN NUMBER: [id number] CULTURE, URINE [ADDED]2020-10-25 00:00:00* Test Item Value Reference Range Interpretation Comme nts CULTURE, URINE (test code = 78147) SPECIMEN NUMBER: [id number] CULTURE, URINE [ADDED]2020-10-25 00:00:00* Test Item Value Reference Range Interpretation Comme nts CULTURE, URINE (test code = 71996) SPECIMEN NUMBER: [id number] CULTURE, URINE [ADDED]2020-10-25 00:00:00* Test Item Value Reference Range Interpretation Comme nts CULTURE, URINE (test code = 22090) SPECIMEN NUMBER: [id number] HIV AB/AG COMBO RFLX [id number] 00:00:00* Test Item Value Reference Range Interpretation Comme nts HIV 1/2 4TH GEN, RFLX CONF ( test code = 3514) NON-REACTIVE HIV AB/AG COMBO RFLX [id number] 00:00:00* Test Item Value Reference Range Interpretation Comme nts HIV 1/2 4TH GEN, RFLX CONF ( test code = 3514) NON-REACTIVE HIV AB/AG COMBO RFLX [id number] 00:00:00* Test Item Value Reference Range Interpretation Comme nts HIV 1/2 4TH GEN, RFLX CONF ( test code = 3514) NON-REACTIVE RPR REFLEX TO [id number] 00:00:00* Test Item Value Reference Range Interpretation Comme nts RPR (test code = 30552) NON-REACTIVE RPR TITER (test code = 3500) NOT INDIC. TITER LIPID [id number] 00:00:00* Test Item Value Reference Range Interpretation Comme nts CHOLESTEROL (test code = 2210) 230 MG/DL TRIGLYCERIDES (test code = 2232) 47 MG/DL HDL CHOLESTEROL (test code = 2220) 68 MG/DL CALC LDL CHOL (test code = 2237) 148 MG/DL RISK RATIO LDL/HDL (test cod e = 2238) 2.18 RATIO HIV AB/AG COMBO RFLX [id number] 00:00:00* Test Item Value Reference Range Interpretation Comme nts HIV 1/2 4TH GEN, RFLX CONF ( test code = 3514) NON-REACTIVE LIPID [id number] 00:00:00* Test Item Value Reference Range Interpretation Comme nts CHOLESTEROL (test code = 2210) 230 MG/DL TRIGLYCERIDES (test code = 2232) 47 MG/DL HDL CHOLESTEROL (test code = 2220) 68 MG/DL CALC LDL CHOL (test code = 2237) 148 MG/DL RISK RATIO LDL/HDL (test cod e = 2238) 2.18 RATIO RPR REFLEX TO [id number] 00:00:00* Test Item Value Reference Range Interpretation Comme nts RPR (test code = 23392) NON-REACTIVE RPR TITER (test code = 3500) NOT INDIC. TITER COMPREHENSIVE METABOLIC [id number] 00:00:00* Test Item Value Reference Range Interpretation Comme nts GLUCOSE (test code = 2217) 95 MG/DL BUN (test code = 2208) 19 MG/DL CREATININE (test code = 2214) 0.56 MG/DL eGFR AMER. (test cod e = 39163) 139 ML/MIN/1.73 eGFR NON- AMER. (test code = 00018) 120 ML/MIN/1.73 CALC BUN/CREAT (test code = 2235) 34 RATIO SODIUM (test code = 2231) 139 MEQ/L POTASSIUM (test code = 2228) 4.3 MEQ/L CHLORIDE (test code = 2215) 101 MEQ/L CARBON DIOXIDE (test code = 2206) 26 MEQ/L CALCIUM (test code = 2209) 9.2 MG/DL PROTEIN, TOTAL (test code = 2229) 7.3 G/DL ALBUMIN (test code = 2201) 4.3 G/DL CALC GLOBULIN (test code = 2240) 3.0 G/DL CALC A/G RATIO (test code = 2234) 1.4 RATIO BILIRUBIN, TOTAL (test code = 2207) 0.4 MG/DL ALKALINE PHOSPHATASE (test code = 2204) 61 U/L AST (test code = 2218) 16 U/L ALT (test code = 2219) 16 U/L COMPREHENSIVE METABOLIC [id number] 00:00:00* Test Item Value Reference Range Interpretation Comme nts GLUCOSE (test code = 2217) 95 MG/DL BUN (test code = 2208) 19 MG/DL CREATININE (test code = 2214) 0.56 MG/DL eGFR AMER. (test cod e = 80163) 139 ML/MIN/1.73 eGFR NON- AMER. (test code = 89622) 120 ML/MIN/1.73 CALC BUN/CREAT (test code = 2235) 34 RATIO SODIUM (test code = 2231) 139 MEQ/L POTASSIUM (test code = 2228) 4.3 MEQ/L CHLORIDE (test code = 2215) 101 MEQ/L CARBON DIOXIDE (test code = 2206) 26 MEQ/L CALCIUM (test code = 2209) 9.2 MG/DL PROTEIN, TOTAL (test code = 2229) 7.3 G/DL ALBUMIN (test code = 2201) 4.3 G/DL CALC GLOBULIN (test code = 2240) 3.0 G/DL CALC A/G RATIO (test code = 2234) 1.4 RATIO BILIRUBIN, TOTAL (test code = 2207) 0.4 MG/DL ALKALINE PHOSPHATASE (test code = 2204) 61 U/L AST (test code = 2218) 16 U/L ALT (test code = 2219) 16 U/L GC AND CHLAMYDIA, AMPLIFIED, [id number] 00:00:00* Test Item Value Reference Range Interpretation Comme nts GONORRHEA, NAAT (test code = 24738) NEGATIVE CHLAMYDIA, NAAT (test code = 05944) NEGATIVE GC AND CHLAMYDIA, AMPLIFIED, [id number] 00:00:00* Test Item Value Reference Range Interpretation Comme nts GONORRHEA, NAAT (test code = 65110) NEGATIVE CHLAMYDIA, NAAT (test code = 79236) NEGATIVE VITAMIN D, 25 [id number] 00:00:00* Test Item Value Reference Range Interpretation Comme nts VITAMIN D, 25 OH (test code = 4958) 105 NG/ML VITAMIN D, 25 [id number] 00:00:00* Test Item Value Reference Range Interpretation Comme nts VITAMIN D, 25 OH (test code = 4958) 105 NG/ML RPR REFLEX TO [id number] 00:00:00* Test Item Value Reference Range Interpretation Comme nts RPR (test code = 36839) NON-REACTIVE RPR TITER (test code = 3500) NOT INDIC. TITER HIV AB/AG COMBO RFLX [id number] 00:00:00* Test Item Value Reference Range Interpretation Comme nts HIV 1/2 4TH GEN, RFLX CONF ( test code = 3514) NON-REACTIVE HIV AB/AG COMBO RFLX [id number] 00:00:00* Test Item Value Reference Range Interpretation Comme nts HIV 1/2 4TH GEN, RFLX CONF ( test code = 3514) NON-REACTIVE RPR REFLEX TO [id number] 00:00:00* Test Item Value Reference Range Interpretation Comme nts RPR (test code = 52602) NON-REACTIVE RPR TITER (test code = 3500) NOT INDIC. TITER LIPID [id number] 00:00:00* Test Item Value Reference Range Interpretation Comme nts CHOLESTEROL (test code = 2210) 230 MG/DL TRIGLYCERIDES (test code = 2232) 47 MG/DL HDL CHOLESTEROL (test code = 2220) 68 MG/DL CALC LDL CHOL (test code = 2237) 148 MG/DL RISK RATIO LDL/HDL (test cod e = 2238) 2.18 RATIO RPR REFLEX TO [id number] 00:00:00* Test Item Value Reference Range Interpretation Comme nts RPR (test code = 24725) NON-REACTIVE RPR TITER (test code = 3500) NOT INDIC. TITER LIPID [id number] 00:00:00* Test Item Value Reference Range Interpretation Comme nts CHOLESTEROL (test code = 2210) 230 MG/DL TRIGLYCERIDES (test code = 2232) 47 MG/DL HDL CHOLESTEROL (test code = 2220) 68 MG/DL CALC LDL CHOL (test code = 2237) 148 MG/DL RISK RATIO LDL/HDL (test cod e = 2238) 2.18 RATIO COMPREHENSIVE METABOLIC [id number] 00:00:00* Test Item Value Reference Range Interpretation Comme nts GLUCOSE (test code = 2217) 95 MG/DL BUN (test code = 2208) 19 MG/DL CREATININE (test code = 2214) 0.56 MG/DL eGFR AMER. (test cod e = 69214) 139 ML/MIN/1.73 eGFR NON- AMER. (test code = 80236) 120 ML/MIN/1.73 CALC BUN/CREAT (test code = 2235) 34 RATIO SODIUM (test code = 2231) 139 MEQ/L POTASSIUM (test code = 2228) 4.3 MEQ/L CHLORIDE (test code = 2215) 101 MEQ/L CARBON DIOXIDE (test code = 2206) 26 MEQ/L CALCIUM (test code = 2209) 9.2 MG/DL PROTEIN, TOTAL (test code = 2229) 7.3 G/DL ALBUMIN (test code = 2201) 4.3 G/DL CALC GLOBULIN (test code = 2240) 3.0 G/DL CALC A/G RATIO (test code = 2234) 1.4 RATIO BILIRUBIN, TOTAL (test code = 2207) 0.4 MG/DL ALKALINE PHOSPHATASE (test code = 2204) 61 U/L AST (test code = 2218) 16 U/L ALT (test code = 2219) 16 U/L COMPREHENSIVE METABOLIC [id number] 00:00:00* Test Item Value Reference Range Interpretation Comme nts GLUCOSE (test code = 2217) 95 MG/DL BUN (test code = 2208) 19 MG/DL CREATININE (test code = 2214) 0.56 MG/DL eGFR AMER. (test cod e = 25342) 139 ML/MIN/1.73 eGFR NON- AMER. (test code = 12996) 120 ML/MIN/1.73 CALC BUN/CREAT (test code = 2235) 34 RATIO SODIUM (test code = 2231) 139 MEQ/L POTASSIUM (test code = 2228) 4.3 MEQ/L CHLORIDE (test code = 2215) 101 MEQ/L CARBON DIOXIDE (test code = 2206) 26 MEQ/L CALCIUM (test code = 2209) 9.2 MG/DL PROTEIN, TOTAL (test code = 2229) 7.3 G/DL ALBUMIN (test code = 2201) 4.3 G/DL CALC GLOBULIN (test code = 2240) 3.0 G/DL CALC A/G RATIO (test code = 2234) 1.4 RATIO BILIRUBIN, TOTAL (test code = 2207) 0.4 MG/DL ALKALINE PHOSPHATASE (test code = 2204) 61 U/L AST (test code = 2218) 16 U/L ALT (test code = 2219) 16 U/L GC AND CHLAMYDIA, AMPLIFIED, [id number] 00:00:00* Test Item Value Reference Range Interpretation Comme nts GONORRHEA, NAAT (test code = 05912) NEGATIVE CHLAMYDIA, NAAT (test code = 12412) NEGATIVE RPR REFLEX TO [id number] 00:00:00* Test Item Value Reference Range Interpretation Comme nts RPR (test code = 71283) NON-REACTIVE RPR TITER (test code = 3500) NOT INDIC. TITER GC AND CHLAMYDIA, AMPLIFIED, [id number] 00:00:00* Test Item Value Reference Range Interpretation Comme nts GONORRHEA, NAAT (test code = 34200) NEGATIVE CHLAMYDIA, NAAT (test code = 51273) NEGATIVE VITAMIN D, 25 [id number] 00:00:00* Test Item Value Reference Range Interpretation Comme nts VITAMIN D, 25 OH (test code = 4958) 105 NG/ML VITAMIN D, 25 [id number] 00:00:00* Test Item Value Reference Range Interpretation Comme nts VITAMIN D, 25 OH (test code = 4958) 105 NG/ML LIPID [id number] 00:00:00* Test Item Value Reference Range Interpretation Comme nts CHOLESTEROL (test code = 2210) 230 MG/DL TRIGLYCERIDES (test code = 2232) 47 MG/DL HDL CHOLESTEROL (test code = 2220) 68 MG/DL CALC LDL CHOL (test code = 2237) 148 MG/DL RISK RATIO LDL/HDL (test cod e = 2238) 2.18 RATIO LIPID [id number] 00:00:00* Test Item Value Reference Range Interpretation Comme nts CHOLESTEROL (test code = 2210) 230 MG/DL TRIGLYCERIDES (test code = 2232) 47 MG/DL HDL CHOLESTEROL (test code = 2220) 68 MG/DL CALC LDL CHOL (test code = 2237) 148 MG/DL RISK RATIO LDL/HDL (test cod e = 2238) 2.18 RATIO GC AND CHLAMYDIA, AMPLIFIED, [id number] 00:00:00* Test Item Value Reference Range Interpretation Comme nts GONORRHEA, NAAT (test code = 09436) NEGATIVE CHLAMYDIA, NAAT (test code = 62500) NEGATIVE COMPREHENSIVE METABOLIC [id number] 00:00:00* Test Item Value Reference Range Interpretation Comme nts GLUCOSE (test code = 2217) 95 MG/DL BUN (test code = 2208) 19 MG/DL CREATININE (test code = 2214) 0.56 MG/DL eGFR AMER. (test cod e = 10079) 139 ML/MIN/1.73 eGFR NON- AMER. (test code = 72086) 120 ML/MIN/1.73 CALC BUN/CREAT (test code = 2235) 34 RATIO SODIUM (test code = 2231) 139 MEQ/L POTASSIUM (test code = 2228) 4.3 MEQ/L CHLORIDE (test code = 2215) 101 MEQ/L CARBON DIOXIDE (test code = 2206) 26 MEQ/L CALCIUM (test code = 2209) 9.2 MG/DL PROTEIN, TOTAL (test code = 2229) 7.3 G/DL ALBUMIN (test code = 2201) 4.3 G/DL CALC GLOBULIN (test code = 2240) 3.0 G/DL CALC A/G RATIO (test code = 2234) 1.4 RATIO BILIRUBIN, TOTAL (test code = 2207) 0.4 MG/DL ALKALINE PHOSPHATASE (test code = 2204) 61 U/L AST (test code = 2218) 16 U/L ALT (test code = 2219) 16 U/L COMPREHENSIVE METABOLIC [id number] 00:00:00* Test Item Value Reference Range Interpretation Comme nts GLUCOSE (test code = 2217) 95 MG/DL BUN (test code = 2208) 19 MG/DL CREATININE (test code = 2214) 0.56 MG/DL eGFR AMER. (test cod e = 20216) 139 ML/MIN/1.73 eGFR NON- AMER. (test code = 48105) 120 ML/MIN/1.73 CALC BUN/CREAT (test code = 2235) 34 RATIO SODIUM (test code = 2231) 139 MEQ/L POTASSIUM (test code = 2228) 4.3 MEQ/L CHLORIDE (test code = 2215) 101 MEQ/L CARBON DIOXIDE (test code = 2206) 26 MEQ/L CALCIUM (test code = 2209) 9.2 MG/DL PROTEIN, TOTAL (test code = 2229) 7.3 G/DL ALBUMIN (test code = 2201) 4.3 G/DL CALC GLOBULIN (test code = 2240) 3.0 G/DL CALC A/G RATIO (test code = 2234) 1.4 RATIO BILIRUBIN, TOTAL (test code = 2207) 0.4 MG/DL ALKALINE PHOSPHATASE (test code = 2204) 61 U/L AST (test code = 2218) 16 U/L ALT (test code = 2219) 16 U/L GC AND CHLAMYDIA, AMPLIFIED, [id number] 00:00:00* Test Item Value Reference Range Interpretation Comme [facility] GONORRHEA, NAAT (test code = 43236) NEGATIVE CHLAMYDIA, NAAT (test code = 24783) NEGATIVE VITAMIN D, 25 [id number] 00:00:00* Test Item Value Reference Range Interpretation Comme [facility] VITAMIN D, 25 OH (test code = 4958) 105 NG/ML VITAMIN D, 25 [id number] 00:00:00* Test Item Value Reference Range Interpretation Comme [facility] VITAMIN D, 25 OH (test code = 4958) 105 NG/ML BREAST ULTRASOUND [id number] 12:35:14- BREAST ULTRASOUND RIGHTULTRASOUND OF RIGHT BREAST AND RIGHT AXILLA: 02/23/2019CLINICAL: 6 month follow up. Comparison is made to exam dated 03/16/2018 ultrasound - [facility] Real-time ultrasound of the right breast and axilla was performed. Postsurgical changes are seen at 1 o'clock, 5 cm from the nipple, from the patient's prior excisional biopsy.The patient describes a "pimple" on her skin at 1 o'clock, 7 cm from the nipple. She has a few small round erythematous superficialskin lesions at this location. No abnormal findings within the breast tissue at this location. A benign simple breast cyst is incidentally noted.There are no suspicious masses or areas of abnormal shadowing. Morphologically normal- appearing lymph nodes are seen in the axilla.IMPRESSION: BENIGN There is no mammographic evidence of malignancy in either breast. Postoperative changes in the right breast from prior excisional biopsy. No sonographic evidence of malignancy in the right breast.Recommend annual screening mammography beginning at age 40 per ACR guidelines.At today's examination, the patient indicated a "pimple" on her skin at 1 o'clock, 7 cm from the nipple, of the right breast. She has a few small round erythematous superficial skin lesions at this location. There are no suspicious findings within the underlying breast tissue. Clinical follow-up is recommended and further management of the patient's skin lesions should be based on clinical evaluation.Jesi Caraballo D.O. al/:02/23/2019 12:35:14 Entry: - 02/27/2019 14:51:49Imaging Technologist: Azeb Blanc , [facility] BIRADS 1-2 Combo FU Letter Ultrasound BI- RADS: 2 BenignDIAG MAMM BILATERAL KYLE CAD [id number] 12:16:24- DIAG MAMM BILATERAL KYLE CAD DIGITALBILATERAL DIGITAL DIAGNOSTIC MAMMOGRAM 3D/2D WITH CAD: 02/23/2019CLINICAL: 6 Month follow-up. Digital breast tomosynthesis was performed in addition to routine CCand MLO views. Current mammographic images were evaluated by either a [email or web address] M-Vu or a [employer] ImageChecker CAD (computer aided detection system). Comparison is made to exam dated [facility]/16/2018 [facility] The tissue of both breasts is heterogeneously dense. This may lower the sensitivity of mammography. RIGHT BREAST: The patient has had right breast excisional biopsy of the previously seen biopsied mass at 1 o'clock. No new mass, malignant type calcification, or lymph node abnormality detected. The patient did complain of a red pimple-like area on her skin at 1 o'clock, 7 cm from the nipple, and no abnormality is seen mammographically.LEFT BREAST: No suspicious masses, malignant type calcifications, or lymph node abnormalities are detected in the left breast.IMPRESSION: INCOMPLETE ASSESSMENT: ADDITIONAL IMAGING EVALUATION RECOMMENDEDUltrasound was performed for further evaluation.Jesi Caraballo D.O. al/:02/23/2019 12:16:24 Entry: - 02/27/2019 14:50:15Imaging Technologist: Jeannie MORIN, [facility]- FWMammogram BI-RADS: 0 IndeterminateCOMPREHENSIVE METABOLIC [id number] 00:00:00* Test Item Value Reference Range Interpretation Comme nts GLUCOSE (test code = 2217) 72 MG/DL BUN (test code = 2208) 16 MG/DL CREATININE (test code = 2214) 0.62 MG/DL eGFR AMER. (test cod e = 29703) 136 ML/MIN/1.73 eGFR NON- AMER. (test code = 48795) 118 ML/MIN/1.73 CALC BUN/CREAT (test code = 2235) 26 RATIO SODIUM (test code = 2231) 138 MEQ/L POTASSIUM (test code = 2228) 4.1 MEQ/L CHLORIDE (test code = 2215) 100 MEQ/L CARBON DIOXIDE (test code = 2206) 26 MEQ/L CALCIUM (test code = 2209) 9.4 MG/DL PROTEIN, TOTAL (test code = 2229) 7.4 G/DL ALBUMIN (test code = 2201) 4.6 G/DL CALC GLOBULIN (test code = 2240) 2.8 G/DL CALC A/G RATIO (test code = 2234) 1.6 RATIO BILIRUBIN, TOTAL (test code = 2207) 0.4 MG/DL ALKALINE PHOSPHATASE (test code = 2204) 68 U/L AST (test code = 2218) 16 U/L ALT (test code = 2219) 14 U/L COMPREHENSIVE METABOLIC [id number] 00:00:00* Test Item Value Reference Range Interpretation Comme nts GLUCOSE (test code = 2217) 72 MG/DL BUN (test code = 2208) 16 MG/DL CREATININE (test code = 2214) 0.62 MG/DL eGFR AMER. (test cod e = 02543) 136 ML/MIN/1.73 eGFR NON- AMER. (test code = 47454) 118 ML/MIN/1.73 CALC BUN/CREAT (test code = 2235) 26 RATIO SODIUM (test code = 2231) 138 MEQ/L POTASSIUM (test code = 2228) 4.1 MEQ/L CHLORIDE (test code = 2215) 100 MEQ/L CARBON DIOXIDE (test code = 2206) 26 MEQ/L CALCIUM (test code = 2209) 9.4 MG/DL PROTEIN, TOTAL (test code = 2229) 7.4 G/DL ALBUMIN (test code = 2201) 4.6 G/DL CALC GLOBULIN (test code = 2240) 2.8 G/DL CALC A/G RATIO (test code = 2234) 1.6 RATIO BILIRUBIN, TOTAL (test code = 2207) 0.4 MG/DL ALKALINE PHOSPHATASE (test code = 2204) 68 U/L AST (test code = 2218) 16 U/L ALT (test code = 2219) 14 U/L COMPREHENSIVE METABOLIC [id number] 00:00:00* Test Item Value Reference Range Interpretation Comme nts GLUCOSE (test code = 2217) 72 MG/DL BUN (test code = 2208) 16 MG/DL CREATININE (test code = 2214) 0.62 MG/DL eGFR AMER. (test cod e = 65127) 136 ML/MIN/1.73 eGFR NON- AMER. (test code = 32510) 118 ML/MIN/1.73 CALC BUN/CREAT (test code = 2235) 26 RATIO SODIUM (test code = 2231) 138 MEQ/L POTASSIUM (test code = 2228) 4.1 MEQ/L CHLORIDE (test code = 2215) 100 MEQ/L CARBON DIOXIDE (test code = 2206) 26 MEQ/L CALCIUM (test code = 2209) 9.4 MG/DL PROTEIN, TOTAL (test code = 2229) 7.4 G/DL ALBUMIN (test code = 2201) 4.6 G/DL CALC GLOBULIN (test code = 2240) 2.8 G/DL CALC A/G RATIO (test code = 2234) 1.6 RATIO BILIRUBIN, TOTAL (test code = 2207) 0.4 MG/DL ALKALINE PHOSPHATASE (test code = 2204) 68 U/L AST (test code = 2218) 16 U/L ALT (test code = 2219) 14 U/L LIPID [id number] 00:00:00* Test Item Value Reference Range Interpretation Comme nts CHOLESTEROL (test code = 2210) 206 MG/DL TRIGLYCERIDES (test code = 2232) 75 MG/DL HDL CHOLESTEROL (test code = 2220) 60 MG/DL CALC LDL CHOL (test code = 2237) 131 MG/DL RISK RATIO LDL/HDL (test cod e = 2238) 2.18 RATIO LIPID [id number] 00:00:00* Test Item Value Reference Range Interpretation Comme nts CHOLESTEROL (test code = 2210) 206 MG/DL TRIGLYCERIDES (test code = 2232) 75 MG/DL HDL CHOLESTEROL (test code = 2220) 60 MG/DL CALC LDL CHOL (test code = 2237) 131 MG/DL RISK RATIO LDL/HDL (test cod e = 2238) 2.18 RATIO CBC W/AUTO [id number] 00:00:00* Test Item Value Reference Range Interpretation Comme nts WBC (test code = 1001) 9.9 K/UL RBC (test code = 1002) 4.74 M/UL HEMOGLOBIN (test code = 1003) 13.9 G/DL HEMATOCRIT (test code = 1004) 40.7 % MCV (test code = 1005) 85.9 fL MCH (test code = 1006) 29.3 PG MCHC (test code = 1007) 34.2 G/DL RDW (test code = 1038) 12.5 % NEUTROPHILS (test code = 1008) 49.7 % LYMPHOCYTES (test code = 1010) 38.3 % MONOCYTES (test code = 1011) 9.6 % EOSINOPHILS (test code = 1012) 1.9 % BASOPHILS (test code = 1013) 0.5 % PLATELET COUNT (test code = 1015) 337 K/UL CBC W/AUTO [id number] 00:00:00* Test Item Value Reference Range Interpretation Comme nts WBC (test code = 1001) 9.9 K/UL RBC (test code = 1002) 4.74 M/UL HEMOGLOBIN (test code = 1003) 13.9 G/DL HEMATOCRIT (test code = 1004) 40.7 % MCV (test code = 1005) 85.9 fL MCH (test code = 1006) 29.3 PG MCHC (test code = 1007) 34.2 G/DL RDW (test code = 1038) 12.5 % NEUTROPHILS (test code = 1008) 49.7 % LYMPHOCYTES (test code = 1010) 38.3 % MONOCYTES (test code = 1011) 9.6 % EOSINOPHILS (test code = 1012) 1.9 % BASOPHILS (test code = 1013) 0.5 % PLATELET COUNT (test code = 1015) 337 K/UL CBC W/AUTO [id number] 00:00:00* Test Item Value Reference Range Interpretation Comme nts WBC (test code = 1001) 9.9 K/UL RBC (test code = 1002) 4.74 M/UL HEMOGLOBIN (test code = 1003) 13.9 G/DL HEMATOCRIT (test code = 1004) 40.7 % MCV (test code = 1005) 85.9 fL MCH (test code = 1006) 29.3 PG MCHC (test code = 1007) 34.2 G/DL RDW (test code = 1038) 12.5 % NEUTROPHILS (test code = 1008) 49.7 % LYMPHOCYTES (test code = 1010) 38.3 % MONOCYTES (test code = 1011) 9.6 % EOSINOPHILS (test code = 1012) 1.9 % BASOPHILS (test code = 1013) 0.5 % PLATELET COUNT (test code = 1015) 337 K/UL HEMOGLOBIN [id number] 00:00:00* Test Item Value Reference Range Interpretation Comme nts HEMOGLOBIN A1c (test code = 25537) 5.2 % HEMOGLOBIN [id number] 00:00:00* Test Item Value Reference Range Interpretation Comme nts HEMOGLOBIN A1c (test code = 31465) 5.2 % HEMOGLOBIN [id number] 00:00:00* Test Item Value Reference Range Interpretation Comme nts HEMOGLOBIN A1c (test code = 24466) 5.2 % [id number] 00:00:00* Test Item Value Reference Range Interpretation Comme nts TSH, THIRD GENERATION (test code = 2821) 1.620 UIU/ML [id number] 00:00:00* Test Item Value Reference Range Interpretation Comme nts TSH, THIRD GENERATION (test code = 2821) 1.620 UIU/ML [id number] 00:00:00* Test Item Value Reference Range Interpretation Comme nts TSH, THIRD GENERATION (test code = 2821) 1.620 UIU/ML VITAMIN D, 25 [id number] 00:00:00* Test Item Value Reference Range Interpretation Comme nts VITAMIN D, 25 OH (test code = 4958) 23 NG/ML VITAMIN D, 25 [id number] 00:00:00* Test Item Value Reference Range Interpretation Comme nts VITAMIN D, 25 OH (test code = 4958) 23 NG/ML VITAMIN B 12 AND FOLIC [id number] 00:00:00* Test Item Value Reference Range Interpretation Comme nts VITAMIN B-12 (test code = 2840) 730 PG/ML FOLIC ACID (test code = 2695) 17.5 UG/L VITAMIN B 12 AND FOLIC [id number] 00:00:00* Test Item Value Reference Range Interpretation Comme nts VITAMIN B-12 (test code = 2840) 730 PG/ML FOLIC ACID (test code = 2695) 17.5 UG/L COMPREHENSIVE METABOLIC [id number] 00:00:00* Test Item Value Reference Range Interpretation Comme nts GLUCOSE (test code = 2217) 72 MG/DL BUN (test code = 2208) 16 MG/DL CREATININE (test code = 2214) 0.62 MG/DL eGFR AMER. (test cod e = 15221) 136 ML/MIN/1.73 eGFR NON- AMER. (test code = 66584) 118 ML/MIN/1.73 CALC BUN/CREAT (test code = 2235) 26 RATIO SODIUM (test code = 2231) 138 MEQ/L POTASSIUM (test code = 2228) 4.1 MEQ/L CHLORIDE (test code = 2215) 100 MEQ/L CARBON DIOXIDE (test code = 2206) 26 MEQ/L CALCIUM (test code = 2209) 9.4 MG/DL PROTEIN, TOTAL (test code = 2229) 7.4 G/DL ALBUMIN (test code = 2201) 4.6 G/DL CALC GLOBULIN (test code = 2240) 2.8 G/DL CALC A/G RATIO (test code = 2234) 1.6 RATIO BILIRUBIN, TOTAL (test code = 2207) 0.4 MG/DL ALKALINE PHOSPHATASE (test code = 2204) 68 U/L AST (test code = 2218) 16 U/L ALT (test code = 2219) 14 U/L COMPREHENSIVE METABOLIC [id number] 00:00:00* Test Item Value Reference Range Interpretation Comme nts GLUCOSE (test code = 2217) 72 MG/DL BUN (test code = 2208) 16 MG/DL CREATININE (test code = 2214) 0.62 MG/DL eGFR AMER. (test cod e = 74317) 136 ML/MIN/1.73 eGFR NON- AMER. (test code = 59281) 118 ML/MIN/1.73 CALC BUN/CREAT (test code = 2235) 26 RATIO SODIUM (test code = 2231) 138 MEQ/L POTASSIUM (test code = 2228) 4.1 MEQ/L CHLORIDE (test code = 2215) 100 MEQ/L CARBON DIOXIDE (test code = 2206) 26 MEQ/L CALCIUM (test code = 2209) 9.4 MG/DL PROTEIN, TOTAL (test code = 2229) 7.4 G/DL ALBUMIN (test code = 2201) 4.6 G/DL CALC GLOBULIN (test code = 2240) 2.8 G/DL CALC A/G RATIO (test code = 2234) 1.6 RATIO BILIRUBIN, TOTAL (test code = 2207) 0.4 MG/DL ALKALINE PHOSPHATASE (test code = 2204) 68 U/L AST (test code = 2218) 16 U/L ALT (test code = 2219) 14 U/L COMPREHENSIVE METABOLIC [id number] 00:00:00* Test Item Value Reference Range Interpretation Comme nts GLUCOSE (test code = 2217) 72 MG/DL BUN (test code = 2208) 16 MG/DL CREATININE (test code = 2214) 0.62 MG/DL eGFR AMER. (test cod e = 84162) 136 ML/MIN/1.73 eGFR NON- AMER. (test code = 68387) 118 ML/MIN/1.73 CALC BUN/CREAT (test code = 2235) 26 RATIO SODIUM (test code = 2231) 138 MEQ/L POTASSIUM (test code = 2228) 4.1 MEQ/L CHLORIDE (test code = 2215) 100 MEQ/L CARBON DIOXIDE (test code = 2206) 26 MEQ/L CALCIUM (test code = 2209) 9.4 MG/DL PROTEIN, TOTAL (test code = 2229) 7.4 G/DL ALBUMIN (test code = 2201) 4.6 G/DL CALC GLOBULIN (test code = 2240) 2.8 G/DL CALC A/G RATIO (test code = 2234) 1.6 RATIO BILIRUBIN, TOTAL (test code = 2207) 0.4 MG/DL ALKALINE PHOSPHATASE (test code = 2204) 68 U/L AST (test code = 2218) 16 U/L ALT (test code = 2219) 14 U/L LIPID [id number] 00:00:00* Test Item Value Reference Range Interpretation Comme nts CHOLESTEROL (test code = 2210) 206 MG/DL TRIGLYCERIDES (test code = 2232) 75 MG/DL HDL CHOLESTEROL (test code = 2220) 60 MG/DL CALC LDL CHOL (test code = 2237) 131 MG/DL RISK RATIO LDL/HDL (test cod e = 2238) 2.18 RATIO LIPID [id number] 00:00:00* Test Item Value Reference Range Interpretation Comme nts CHOLESTEROL (test code = 2210) 206 MG/DL TRIGLYCERIDES (test code = 2232) 75 MG/DL HDL CHOLESTEROL (test code = 2220) 60 MG/DL CALC LDL CHOL (test code = 2237) 131 MG/DL RISK RATIO LDL/HDL (test cod e = 2238) 2.18 RATIO LIPID [id number] 00:00:00* Test Item Value Reference Range Interpretation Comme nts CHOLESTEROL (test code = 2210) 206 MG/DL TRIGLYCERIDES (test code = 2232) 75 MG/DL HDL CHOLESTEROL (test code = 2220) 60 MG/DL CALC LDL CHOL (test code = 2237) 131 MG/DL RISK RATIO LDL/HDL (test cod e = 2238) 2.18 RATIO CBC W/AUTO [id number] 00:00:00* Test Item Value Reference Range Interpretation Comme nts WBC (test code = 1001) 9.9 K/UL RBC (test code = 1002) 4.74 M/UL HEMOGLOBIN (test code = 1003) 13.9 G/DL HEMATOCRIT (test code = 1004) 40.7 % MCV (test code = 1005) 85.9 fL MCH (test code = 1006) 29.3 PG MCHC (test code = 1007) 34.2 G/DL RDW (test code = 1038) 12.5 % NEUTROPHILS (test code = 1008) 49.7 % LYMPHOCYTES (test code = 1010) 38.3 % MONOCYTES (test code = 1011) 9.6 % EOSINOPHILS (test code = 1012) 1.9 % BASOPHILS (test code = 1013) 0.5 % PLATELET COUNT (test code = 1015) 337 K/UL CBC W/AUTO [id number] 00:00:00* Test Item Value Reference Range Interpretation Comme nts WBC (test code = 1001) 9.9 K/UL RBC (test code = 1002) 4.74 M/UL HEMOGLOBIN (test code = 1003) 13.9 G/DL HEMATOCRIT (test code = 1004) 40.7 % MCV (test code = 1005) 85.9 fL MCH (test code = 1006) 29.3 PG MCHC (test code = 1007) 34.2 G/DL RDW (test code = 1038) 12.5 % NEUTROPHILS (test code = 1008) 49.7 % LYMPHOCYTES (test code = 1010) 38.3 % MONOCYTES (test code = 1011) 9.6 % EOSINOPHILS (test code = 1012) 1.9 % BASOPHILS (test code = 1013) 0.5 % PLATELET COUNT (test code = 1015) 337 K/UL CBC W/AUTO [id number] 00:00:00* Test Item Value Reference Range Interpretation Comme nts WBC (test code = 1001) 9.9 K/UL RBC (test code = 1002) 4.74 M/UL HEMOGLOBIN (test code = 1003) 13.9 G/DL HEMATOCRIT (test code = 1004) 40.7 % MCV (test code = 1005) 85.9 fL MCH (test code = 1006) 29.3 PG MCHC (test code = 1007) 34.2 G/DL RDW (test code = 1038) 12.5 % NEUTROPHILS (test code = 1008) 49.7 % LYMPHOCYTES (test code = 1010) 38.3 % MONOCYTES (test code = 1011) 9.6 % EOSINOPHILS (test code = 1012) 1.9 % BASOPHILS (test code = 1013) 0.5 % PLATELET COUNT (test code = 1015) 337 K/UL HEMOGLOBIN [id number] 00:00:00* Test Item Value Reference Range Interpretation Comme nts HEMOGLOBIN A1c (test code = 74294) 5.2 % HEMOGLOBIN [id number] 00:00:00* Test Item Value Reference Range Interpretation Comme nts HEMOGLOBIN A1c (test code = 02765) 5.2 % HEMOGLOBIN [id number] 00:00:00* Test Item Value Reference Range Interpretation Comme nts HEMOGLOBIN A1c (test code = 54643) 5.2 % [id number] 00:00:00* Test Item Value Reference Range Interpretation Comme nts TSH, THIRD GENERATION (test code = 2821) 1.620 UIU/ML [id number] 00:00:00* Test Item Value Reference Range Interpretation Comme nts TSH, THIRD GENERATION (test code = 2821) 1.620 UIU/ML [id number] 00:00:00* Test Item Value Reference Range Interpretation Comme nts TSH, THIRD GENERATION (test code = 2821) 1.620 UIU/ML VITAMIN D, 25 [id number] 00:00:00* Test Item Value Reference Range Interpretation Comme nts VITAMIN D, 25 OH (test code = 4958) 23 NG/ML VITAMIN D, 25 [id number] 00:00:00* Test Item Value Reference Range Interpretation Comme nts VITAMIN D, 25 OH (test code = 4958) 23 NG/ML VITAMIN B 12 AND FOLIC [id number] 00:00:00* Test Item Value Reference Range Interpretation Comme nts VITAMIN B-12 (test code = 2840) 730 PG/ML FOLIC ACID (test code = 2695) 17.5 UG/L VITAMIN B 12 AND FOLIC [id number] 00:00:00* Test Item Value Reference Range Interpretation Comme nts VITAMIN B-12 (test code = 2840) 730 PG/ML FOLIC ACID (test code = 2695) 17.5 UG/L LIPID [id number] 00:00:00* Test Item Value Reference Range Interpretation Comme nts CHOLESTEROL (test code = 2210) 206 MG/DL TRIGLYCERIDES (test code = 2232) 75 MG/DL HDL CHOLESTEROL (test code = 2220) 60 MG/DL CALC LDL CHOL (test code = 2237) 131 MG/DL RISK RATIO LDL/HDL (test cod e = 2238) 2.18 RATIO CBC W/AUTO [id number] 00:00:00* Test Item Value Reference Range Interpretation Comme nts WBC (test code = 1001) 9.9 K/UL RBC (test code = 1002) 4.74 M/UL HEMOGLOBIN (test code = 1003) 13.9 G/DL HEMATOCRIT (test code = 1004) 40.7 % MCV (test code = 1005) 85.9 fL MCH (test code = 1006) 29.3 PG MCHC (test code = 1007) 34.2 G/DL RDW (test code = 1038) 12.5 % NEUTROPHILS (test code = 1008) 49.7 % LYMPHOCYTES (test code = 1010) 38.3 % MONOCYTES (test code = 1011) 9.6 % EOSINOPHILS (test code = 1012) 1.9 % BASOPHILS (test code = 1013) 0.5 % PLATELET COUNT (test code = 1015) 337 K/UL CBC W/AUTO [id number] 00:00:00* Test Item Value Reference Range Interpretation Comme nts WBC (test code = 1001) 9.9 K/UL RBC (test code = 1002) 4.74 M/UL HEMOGLOBIN (test code = 1003) 13.9 G/DL HEMATOCRIT (test code = 1004) 40.7 % MCV (test code = 1005) 85.9 fL MCH (test code = 1006) 29.3 PG MCHC (test code = 1007) 34.2 G/DL RDW (test code = 1038) 12.5 % NEUTROPHILS (test code = 1008) 49.7 % LYMPHOCYTES (test code = 1010) 38.3 % MONOCYTES (test code = 1011) 9.6 % EOSINOPHILS (test code = 1012) 1.9 % BASOPHILS (test code = 1013) 0.5 % PLATELET COUNT (test code = 1015) 337 K/UL CBC W/AUTO [id number] 00:00:00* Test Item Value Reference Range Interpretation Comme nts WBC (test code = 1001) 9.9 K/UL RBC (test code = 1002) 4.74 M/UL HEMOGLOBIN (test code = 1003) 13.9 G/DL HEMATOCRIT (test code = 1004) 40.7 % MCV (test code = 1005) 85.9 fL MCH (test code = 1006) 29.3 PG MCHC (test code = 1007) 34.2 G/DL RDW (test code = 1038) 12.5 % NEUTROPHILS (test code = 1008) 49.7 % LYMPHOCYTES (test code = 1010) 38.3 % MONOCYTES (test code = 1011) 9.6 % EOSINOPHILS (test code = 1012) 1.9 % BASOPHILS (test code = 1013) 0.5 % PLATELET COUNT (test code = 1015) 337 K/UL HEMOGLOBIN [id number] 00:00:00* Test Item Value Reference Range Interpretation Comme nts HEMOGLOBIN A1c (test code = 89859) 5.2 % HEMOGLOBIN [id number] 00:00:00* Test Item Value Reference Range Interpretation Comme nts HEMOGLOBIN A1c (test code = 01513) 5.2 % HEMOGLOBIN [id number] 00:00:00* Test Item Value Reference Range Interpretation Comme nts HEMOGLOBIN A1c (test code = 06932) 5.2 % [id number] 00:00:00* Test Item Value Reference Range Interpretation Comme nts TSH, THIRD GENERATION (test code = 2821) 1.620 UIU/ML [id number] 00:00:00* Test Item Value Reference Range Interpretation Comme nts TSH, THIRD GENERATION (test code = 2821) 1.620 UIU/ML [id number] 00:00:00* Test Item Value Reference Range Interpretation Comme nts TSH, THIRD GENERATION (test code = 2821) 1.620 UIU/ML VITAMIN D, 25 [id number] 00:00:00* Test Item Value Reference Range Interpretation Comme nts VITAMIN D, 25 OH (test code = 4958) 23 NG/ML VITAMIN D, 25 [id number] 00:00:00* Test Item Value Reference Range Interpretation Comme nts VITAMIN D, 25 OH (test code = 4958) 23 NG/ML VITAMIN B 12 AND FOLIC [id number] 00:00:00* Test Item Value Reference Range Interpretation Comme nts VITAMIN B-12 (test code = 2840) 730 PG/ML FOLIC ACID (test code = 2695) 17.5 UG/L VITAMIN B 12 AND FOLIC [id number] 00:00:00* Test Item Value Reference Range Interpretation Comme nts VITAMIN B-12 (test code = 2840) 730 PG/ML FOLIC ACID (test code = 2695) 17.5 UG/L PAP TEST, THINPREP, [id number] 00:00:00* Test Item Value Reference Range Interpretation Comme nts SOURCE: (test code = 8001) Cervical/Endocervical SLIDES: (test code = 8011) 1 LMP: (test code = 8021) 03/15 SPECIMEN ADEQUACY: (test code = 20473) (NOTE) INTERPRETATION: (test code = 94546) NO EPITHELIAL ABNORMALITY SEE BELOW ART INSTRUCTOR: (test code = 8101) AMEE Gonzalez(ASCP)IA C PATHOLOGIST INTERPRETATION BY: (test code = 8122) [facility] LOCATION: (test code = 15396) (NOTE) CPT: (test code = 8140) (NOTE) PAP TEST, THINPREP, [id number] 00:00:00* Test Item Value Reference Range Interpretation Comme nts SOURCE: (test code = 8001) Cervical/Endocervical SLIDES: (test code = 8011) 1 LMP: (test code = 8021) 03/15 SPECIMEN ADEQUACY: (test code = 19837) (NOTE) INTERPRETATION: (test code = 70871) NO EPITHELIAL ABNORMALITY SEE BELOW ART INSTRUCTOR: (test code = 8101) AMEE Gonzalez(ASCP)IA C PATHOLOGIST INTERPRETATION BY: (test code = 8122) [facility] LOCATION: (test code = 97128) (NOTE) CPT: (test code = 8140) (NOTE) PAP TEST, THINPREP, [id number] 00:00:00* Test Item Value Reference Range Interpretation Comme nts SOURCE: (test code = 8001) Cervical/Endocervical SLIDES: (test code = 8011) 1 LMP: (test code = 8021) 03/15 SPECIMEN ADEQUACY: (test code = 02283) (NOTE) INTERPRETATION: (test code = 35169) NO EPITHELIAL ABNORMALITY SEE BELOW ART INSTRUCTOR: (test code = 8101) AMEE Gonzalez(ASCP)ESTEFANIA C PATHOLOGIST INTERPRETATION BY: (test code = 8122) [facility] LOCATION: (test code = 39912) (NOTE) CPT: (test code = 8140) (NOTE) PAP TEST, THINPREP, [id number] 00:00:00* Test Item Value Reference Range Interpretation Comme nts SOURCE: (test code = 8001) Cervical/Endocervical SLIDES: (test code = 8011) 1 LMP: (test code = 8021) 03/15 SPECIMEN ADEQUACY: (test code = 50990) (NOTE) INTERPRETATION: (test code = 48937) NO EPITHELIAL ABNORMALITY SEE BELOW ART INSTRUCTOR: (test code = 8101) AMEE Gonzalez(ASCP)ESTEFANIA C PATHOLOGIST INTERPRETATION BY: (test code = 8122) [facility] LOCATION: (test code = 70051) (NOTE) CPT: (test code = 8140) (NOTE) PAP TEST, THINPREP, [id number] 00:00:00* Test Item Value Reference Range Interpretation Comme nts SOURCE: (test code = 8001) Cervical/Endocervical SLIDES: (test code = 8011) 1 LMP: (test code = 8021) 03/15 SPECIMEN ADEQUACY: (test code = 26494) (NOTE) INTERPRETATION: (test code = 61296) NO EPITHELIAL ABNORMALITY SEE BELOW ART INSTRUCTOR: (test code = 8101) AMEE Gonzalez(ASCP)ESTEFANIA C PATHOLOGIST INTERPRETATION BY: (test code = 8122) [facility] LOCATION: (test code = 27346) (NOTE) CPT: (test code = 8140) (NOTE) PAP TEST, THINPREP, [id number] 00:00:00* Test Item Value Reference Range Interpretation Comme nts SOURCE: (test code = 8001) Cervical/Endocervical SLIDES: (test code = 8011) 1 LMP: (test code = 8021) 03/15 SPECIMEN ADEQUACY: (test code = 58062) (NOTE) INTERPRETATION: (test code = 17233) NO EPITHELIAL ABNORMALITY SEE BELOW ART INSTRUCTOR: (test code = 8101) AMEE Gonzalez(ASCP)IA C PATHOLOGIST INTERPRETATION BY: (test code = 8122) [facility] LOCATION: (test code = 92178) (NOTE) CPT: (test code = 8140) (NOTE) HPV HIGH RISK WITH GENOTYPE, [id number] 00:00:00* Test Item Value Reference Range Interpretation Comme nts HPV HIGH RISK INTERP (test c ode = 67840) NEGATIVE HPV 16 (test code = 06377) NEGATIVE HPV 18 (test code = 76031) NEGATIVE HPV, HR, OTHER GENOTYPES (te st code = 15204) NEGATIVE HPV HIGH RISK WITH GENOTYPE, [id number] 00:00:00* Test Item Value Reference Range Interpretation Comme nts HPV HIGH RISK INTERP (test c ode = 92961) NEGATIVE HPV 16 (test code = 97504) NEGATIVE HPV 18 (test code = 27973) NEGATIVE HPV, HR, OTHER GENOTYPES (te st code = 30523) NEGATIVE HPV HIGH RISK WITH GENOTYPE, [id number] 00:00:00* Test Item Value Reference Range Interpretation Comme nts HPV HIGH RISK INTERP (test c ode = 95684) NEGATIVE HPV 16 (test code = 92186) NEGATIVE HPV 18 (test code = 38636) NEGATIVE HPV, HR, OTHER GENOTYPES (te st code = 87567) NEGATIVE HPV HIGH RISK WITH GENOTYPE, [id number] 00:00:00* Test Item Value Reference Range Interpretation Comme nts HPV HIGH RISK INTERP (test c ode = 38916) NEGATIVE HPV 16 (test code = 14922) NEGATIVE HPV 18 (test code = 95223) NEGATIVE HPV, HR, OTHER GENOTYPES (te st code = 17120) NEGATIVE HPV HIGH RISK WITH GENOTYPE, [id number] 00:00:00* Test Item Value Reference Range Interpretation Comme nts HPV HIGH RISK INTERP (test c ode = 27667) NEGATIVE HPV 16 (test code = 55802) NEGATIVE HPV 18 (test code = 11400) NEGATIVE HPV, HR, OTHER GENOTYPES (te st code = 04457) NEGATIVE HPV HIGH RISK WITH GENOTYPE, [id number] 00:00:00* Test Item Value Reference Range Interpretation Comme nts HPV HIGH RISK INTERP (test c ode = 65639) NEGATIVE HPV 16 (test code = 89717) NEGATIVE HPV 18 (test code = 74100) NEGATIVE HPV, HR, OTHER GENOTYPES (te st code = 75318) NEGATIVE PAP TEST, THINPREP, [id number] 00:00:00* Test Item Value Reference Range Interpretation Comme nts SOURCE: (test code = 8001) Cervical/Endocervical SLIDES: (test code = 8011) 1 LMP: (test code = 8021) 01/03/17 SPECIMEN ADEQUACY: (test code = 19568) (NOTE) INTERPRETATION: (test code = 60882) NO EPITHELIAL ABNORMALITY SEE BELOW ART INSTRUCTOR: (test code = 8101) AMEE ENCISO(ASCP) PATHOLOGIST INTERPRETATION BY: (test code = 8122) Mehul Estrada M.D. LOCATION: (test code = 69318) (NOTE) CPT: (test code = 8140) (NOTE) PAP TEST, THINPREP, [id number] 00:00:00* Test Item Value Reference Range Interpretation Comme nts SOURCE: (test code = 8001) Cervical/Endocervical SLIDES: (test code = 8011) 1 LMP: (test code = 8021) 01/03/17 SPECIMEN ADEQUACY: (test code = 67003) (NOTE) INTERPRETATION: (test code = 86681) NO EPITHELIAL ABNORMALITY SEE BELOW ART INSTRUCTOR: (test code = 8101) AMEE ENCISO(ASCP) PATHOLOGIST INTERPRETATION BY: (test code = 8122) Mehul Estrada M.D. LOCATION: (test code = 70520) (NOTE) CPT: (test code = 8140) (NOTE) PAP TEST, THINPREP, [id number] 00:00:00* Test Item Value Reference Range Interpretation Comme nts SOURCE: (test code = 8001) Cervical/Endocervical SLIDES: (test code = 8011) 1 LMP: (test code = 8021) 01/03/17 SPECIMEN ADEQUACY: (test code = 51075) (NOTE) INTERPRETATION: (test code = 20869) NO EPITHELIAL ABNORMALITY SEE BELOW ART INSTRUCTOR: (test code = 8101) AMEE ENCISO(ASCP) PATHOLOGIST INTERPRETATION BY: (test code = 8122) Mehul Estrada M.D. LOCATION: (test code = 20533) (NOTE) CPT: (test code = 8140) (NOTE) PAP TEST, THINPREP, [id number] 00:00:00* Test Item Value Reference Range Interpretation Comme nts SOURCE: (test code = 8001) Cervical/Endocervical SLIDES: (test code = 8011) 1 LMP: (test code = 8021) 01/03/17 SPECIMEN ADEQUACY: (test code = 37051) (NOTE) INTERPRETATION: (test code = 18100) NO EPITHELIAL ABNORMALITY SEE BELOW ART INSTRUCTOR: (test code = 8101) AMEE ENCISO(ASCP) PATHOLOGIST INTERPRETATION BY: (test code = 8122) Mehul Estrada M.D. LOCATION: (test code = 28756) (NOTE) CPT: (test code = 8140) (NOTE) PAP TEST, THINPREP, [id number] 00:00:00* Test Item Value Reference Range Interpretation Comme nts SOURCE: (test code = 8001) Cervical/Endocervical SLIDES: (test code = 8011) 1 LMP: (test code = 8021) 01/03/17 SPECIMEN ADEQUACY: (test code = 28573) (NOTE) INTERPRETATION: (test code = 50972) NO EPITHELIAL ABNORMALITY SEE BELOW ART INSTRUCTOR: (test code = 8101) AMEE ENCISO(ASCP) PATHOLOGIST INTERPRETATION BY: (test code = 8122) Mehul Estrada M.D. LOCATION: (test code = 72443) (NOTE) CPT: (test code = 8140) (NOTE) PAP TEST, THINPREP, [id number] 00:00:00* Test Item Value Reference Range Interpretation Comme nts SOURCE: (test code = 8001) Cervical/Endocervical SLIDES: (test code = 8011) 1 LMP: (test code = 8021) 01/03/17 SPECIMEN ADEQUACY: (test code = 49500) (NOTE) INTERPRETATION: (test code = 01425) NO EPITHELIAL ABNORMALITY SEE BELOW ART INSTRUCTOR: (test code = 8101) AMEE ENCISO(ASCP) PATHOLOGIST INTERPRETATION BY: (test code = 8122) Mehul Estrada M.D. LOCATION: (test code = 08317) (NOTE) CPT: (test code = 8140) (NOTE) CHLAMYDIA, AMPLIFIED, [id number] 00:00:00* Test Item Value Reference Range Interpretation Comme nts CHLAMYDIA, TMA (test code = 68322) NEGATIVE CHLAMYDIA, AMPLIFIED, [id number] 00:00:00* Test Item Value Reference Range Interpretation Comme nts CHLAMYDIA, TMA (test code = 60718) NEGATIVE GC, AMPLIFIED, [id number] 00:00:00* Test Item Value Reference Range Interpretation Comme nts GONORRHEA, TMA (test code = 79332) NEGATIVE GC, AMPLIFIED, [id number] 00:00:00* Test Item Value Reference Range Interpretation Comme nts GONORRHEA, TMA (test code = 75509) NEGATIVE CHLAMYDIA, AMPLIFIED, [id number] 00:00:00* Test Item Value Reference Range Interpretation Comme nts CHLAMYDIA, TMA (test code = 57205) NEGATIVE CHLAMYDIA, AMPLIFIED, [id number] 00:00:00* Test Item Value Reference Range Interpretation Comme nts CHLAMYDIA, TMA (test code = 42789) NEGATIVE GC, AMPLIFIED, [id number] 00:00:00* Test Item Value Reference Range Interpretation Comme nts GONORRHEA, TMA (test code = 90309) NEGATIVE GC, AMPLIFIED, [id number] 00:00:00* Test Item Value Reference Range Interpretation Comme nts GONORRHEA, TMA (test code = 23816) NEGATIVE CHLAMYDIA, AMPLIFIED, [id number] 00:00:00* Test Item Value Reference Range Interpretation Comme nts CHLAMYDIA, TMA (test code = 02452) NEGATIVE CHLAMYDIA, AMPLIFIED, [id number] 00:00:00* Test Item Value Reference Range Interpretation Comme nts CHLAMYDIA, TMA (test code = 00250) NEGATIVE GC, AMPLIFIED, [id number] 00:00:00* Test Item Value Reference Range Interpretation Comme nts GONORRHEA, TMA (test code = 21256) NEGATIVE GC, AMPLIFIED, [id number] 00:00:00* Test Item Value Reference Range Interpretation Comme nts GONORRHEA, TMA (test code = 84380) NEGATIVE HIV AB/AG COMBO RFLX [id number] 00:00:00* Test Item Value Reference Range Interpretation Comme nts HIV 1/2 4TH GEN, RFLX CONF ( test code = 3514) NON-REACTIVE HIV AB/AG COMBO RFLX [id number] 00:00:00* Test Item Value Reference Range Interpretation Comme nts HIV 1/2 4TH GEN, RFLX CONF ( test code = 3514) NON-REACTIVE HPV HIGH RISK WITH GENOTYPE, [id number] 00:00:00* Test Item Value Reference Range Interpretation Comme nts HPV HIGH RISK INTERP (test c ode = 85341) NEGATIVE HPV 16 (test code = 62606) NEGATIVE HPV 18 (test code = 62275) NEGATIVE HPV, HR, OTHER GENOTYPES (te st code = 28738) NEGATIVE HPV HIGH RISK WITH GENOTYPE, [id number] 00:00:00* Test Item Value Reference Range Interpretation Comme nts HPV HIGH RISK INTERP (test c ode = 16156) NEGATIVE HPV 16 (test code = 83460) NEGATIVE HPV 18 (test code = 63060) NEGATIVE HPV, HR, OTHER GENOTYPES (te st code = 56187) NEGATIVE ACUTE HEPATITIS [id number] 00:00:00* Test Item Value Reference Range Interpretation Comme nts HEPATITIS A IgM (test code = 04433) NON-REACTIVE HEPATITIS B CORE IgM (test c ode = 4644) NON-REACTIVE HEPATITIS B SURF AG (test co de = 2739) NON-REACTIVE HEPATITIS C ANTIBODY (test c ode = 4675) NON-REACTIVE INTERPRETATION HEPATITIS A: (test code = 2552) (NOTE) INTERPRETATION HEPATITIS B: (test code = 49476) (NOTE) INTERPRETATION HEPATITIS C: (test code = 48293) (NOTE) ACUTE HEPATITIS [id number] 00:00:00* Test Item Value Reference Range Interpretation Comme nts HEPATITIS A IgM (test code = 19978) NON-REACTIVE HEPATITIS B CORE IgM (test c ode = 4644) NON-REACTIVE HEPATITIS B SURF AG (test co de = 2739) NON-REACTIVE HEPATITIS C ANTIBODY (test c ode = 4675) NON-REACTIVE INTERPRETATION HEPATITIS A: (test code = 2552) (NOTE) INTERPRETATION HEPATITIS B: (test code = 90139) (NOTE) INTERPRETATION HEPATITIS C: (test code = 75505) (NOTE) HIV AB/AG COMBO RFLX [id number] 00:00:00* Test Item Value Reference Range Interpretation Comme nts HIV 1/2 4TH GEN, RFLX CONF ( test code = 3514) NON-REACTIVE [id number] 00:00:00* Test Item Value Reference Range Interpretation Comme nts RPR RESULT (test code = 3501) NON-REACTIVE RPR TITER (test code = 3500) NOT INDIC. TITER [id number] 00:00:00* Test Item Value Reference Range Interpretation Comme nts RPR RESULT (test code = 3501) NON-REACTIVE RPR TITER (test code = 3500) NOT INDIC. TITER [id number] 00:00:00* Test Item Value Reference Range Interpretation Comme nts RPR RESULT (test code = 3501) NON-REACTIVE RPR TITER (test code = 3500) NOT INDIC. TITER VAGINAL PATHOGENS DNA [id number] 00:00:00* Test Item Value Reference Range Interpretation Comme nts ELIN SPECIES (test code = 47597) NEGATIVE G. VAGINALIS (test code = 96881) POSITIVE T. VAGINALIS (test code = 13455) NEGATIVE VAGINAL PATHOGENS DNA [id number] 00:00:00* Test Item Value Reference Range Interpretation Comme nts ELIN SPECIES (test code = 24989) NEGATIVE G. VAGINALIS (test code = 96521) POSITIVE T. VAGINALIS (test code = 91262) NEGATIVE HIV AB/AG COMBO RFLX [id number] 00:00:00* Test Item Value Reference Range Interpretation Comme nts HIV 1/2 4TH GEN, RFLX CONF ( test code = 3514) NON-REACTIVE HIV AB/AG COMBO RFLX [id number] 00:00:00* Test Item Value Reference Range Interpretation Comme nts HIV 1/2 4TH GEN, RFLX CONF ( test code = 3514) NON-REACTIVE ACUTE HEPATITIS [id number] 00:00:00* Test Item Value Reference Range Interpretation Comme nts HEPATITIS A IgM (test code = 28095) NON-REACTIVE HEPATITIS B CORE IgM (test c ode = 4644) NON-REACTIVE HEPATITIS B SURF AG (test co de = 1419) NON-REACTIVE HEPATITIS C ANTIBODY (test c ode = 4675) NON-REACTIVE INTERPRETATION HEPATITIS A: (test code = 2552) (NOTE) INTERPRETATION HEPATITIS B: (test code = 88104) (NOTE) INTERPRETATION HEPATITIS C: (test code = 79094) (NOTE) HIV AB/AG COMBO RFLX [id number] 00:00:00* Test Item Value Reference Range Interpretation Comme nts HIV 1/2 4TH GEN, RFLX CONF ( test code = 3514) NON-REACTIVE ACUTE HEPATITIS [id number] 00:00:00* Test Item Value Reference Range Interpretation Comme nts HEPATITIS A IgM (test code = 13034) NON-REACTIVE HEPATITIS B CORE IgM (test c ode = 4644) NON-REACTIVE HEPATITIS B SURF AG (test co de = 2739) NON-REACTIVE HEPATITIS C ANTIBODY (test c ode = 4675) NON-REACTIVE INTERPRETATION HEPATITIS A: (test code = 2552) (NOTE) INTERPRETATION HEPATITIS B: (test code = 65184) (NOTE) INTERPRETATION HEPATITIS C: (test code = 13602) (NOTE) HPV HIGH RISK WITH GENOTYPE, [id number] 00:00:00* Test Item Value Reference Range Interpretation Comme nts HPV HIGH RISK INTERP (test c ode = 11302) NEGATIVE HPV 16 (test code = 05155) NEGATIVE HPV 18 (test code = 96145) NEGATIVE HPV, HR, OTHER GENOTYPES (te st code = 53201) NEGATIVE HPV HIGH RISK WITH GENOTYPE, [id number] 00:00:00* Test Item Value Reference Range Interpretation Comme nts HPV HIGH RISK INTERP (test c ode = 89911) NEGATIVE HPV 16 (test code = 56645) NEGATIVE HPV 18 (test code = 70612) NEGATIVE HPV, HR, OTHER GENOTYPES (te st code = 26907) NEGATIVE ACUTE HEPATITIS [id number] 00:00:00* Test Item Value Reference Range Interpretation Comme nts HEPATITIS A IgM (test code = 26152) NON-REACTIVE HEPATITIS B CORE IgM (test c ode = 4644) NON-REACTIVE HEPATITIS B SURF AG (test co de = 2739) NON-REACTIVE HEPATITIS C ANTIBODY (test c ode = 4675) NON-REACTIVE INTERPRETATION HEPATITIS A: (test code = 2552) (NOTE) INTERPRETATION HEPATITIS B: (test code = 91302) (NOTE) INTERPRETATION HEPATITIS C: (test code = 07501) (NOTE) [id number] 00:00:00* Test Item Value Reference Range Interpretation Comme nts RPR RESULT (test code = 3501) NON-REACTIVE RPR TITER (test code = 3500) NOT INDIC. TITER [id number] 00:00:00* Test Item Value Reference Range Interpretation Comme nts RPR RESULT (test code = 3501) NON-REACTIVE RPR TITER (test code = 3500) NOT INDIC. TITER [id number] 00:00:00* Test Item Value Reference Range Interpretation Comme nts RPR RESULT (test code = 3501) NON-REACTIVE RPR TITER (test code = 3500) NOT INDIC. TITER VAGINAL PATHOGENS DNA [id number] 00:00:00* Test Item Value Reference Range Interpretation Comme nts ELIN SPECIES (test code = ) NEGATIVE G. VAGINALIS (test code = 64101) POSITIVE T. VAGINALIS (test code = 39870) NEGATIVE ACUTE HEPATITIS [id number] 00:00:00* Test Item Value Reference Range Interpretation Comme nts HEPATITIS A IgM (test code = 64344) NON-REACTIVE HEPATITIS B CORE IgM (test c ode = 4644) NON-REACTIVE HEPATITIS B SURF AG (test co de = 2739) NON-REACTIVE HEPATITIS C ANTIBODY (test c ode = 4675) NON-REACTIVE INTERPRETATION HEPATITIS A: (test code = 2552) (NOTE) INTERPRETATION HEPATITIS B: (test code = 13199) (NOTE) INTERPRETATION HEPATITIS C: (test code = 42781) (NOTE) VAGINAL PATHOGENS DNA [id number] 00:00:00* Test Item Value Reference Range Interpretation Comme nts ELIN SPECIES (test code = ) NEGATIVE G. VAGINALIS (test code = 33021) POSITIVE T. VAGINALIS (test code = 05231) NEGATIVE HPV HIGH RISK WITH GENOTYPE, [id number] 00:00:00* Test Item Value Reference Range Interpretation Comme nts HPV HIGH RISK INTERP (test c ode = 61984) NEGATIVE HPV 16 (test code = 12324) NEGATIVE HPV 18 (test code = 70899) NEGATIVE HPV, HR, OTHER GENOTYPES (te st code = 87611) NEGATIVE HPV HIGH RISK WITH GENOTYPE, [id number] 00:00:00* Test Item Value Reference Range Interpretation Comme nts HPV HIGH RISK INTERP (test c ode = 09253) NEGATIVE HPV 16 (test code = 72599) NEGATIVE HPV 18 (test code = 95337) NEGATIVE HPV, HR, OTHER GENOTYPES (te st code = 27759) NEGATIVE [id number] 00:00:00* Test Item Value Reference Range Interpretation Comme nts RPR RESULT (test code = 3501) NON-REACTIVE RPR TITER (test code = 3500) NOT INDIC. TITER [id number] 00:00:00* Test Item Value Reference Range Interpretation Comme nts RPR RESULT (test code = 3501) NON-REACTIVE RPR TITER (test code = 3500) NOT INDIC. TITER [id number] 00:00:00* Test Item Value Reference Range Interpretation Comme nts RPR RESULT (test code = 3501) NON-REACTIVE RPR TITER (test code = 3500) NOT INDIC. TITER VAGINAL PATHOGENS DNA [id number] 00:00:00* Test Item Value Reference Range Interpretation Comme nts ELIN SPECIES (test code = ) NEGATIVE G. VAGINALIS (test code = 54789) POSITIVE T. VAGINALIS (test code = 81482) NEGATIVE VAGINAL PATHOGENS DNA [id number] 00:00:00* Test Item Value Reference Range Interpretation Comme nts ELIN SPECIES (test code = 92446) NEGATIVE G. VAGINALIS (test code = 68220) POSITIVE T. VAGINALIS (test code = 17879) NEGATIVE Notes Date/Time Note Provider Source 2023-10-05 13:36:12 X3q4ztCXlNjdrWx/iZZc 1zzLNLWZE2s6PqojqEBvHN dTUi8ODrZhEccHLYuWIv+P2508-60-06R18:36:12F ormatting of this note might be different from the original.Please continue gabapentin 100mg qhs 86170-2Jtkehhxam encounter OeoqZN7023-13-58H02:37:30Telephone encounter NoteTXT1.2.840.007634.1.13.104.2.7.2.60598 9|[id number] for patient tkkn00657-6BmyyHZCRBVHLIXMXgqjtqsgl C-CDA narrative [id number] TGGWNZWHCXYHLPQB6757-94-38S20:37:301.2.840 .795967.1.72.3.15|1.2.840.535454.1.13.104. 2.7.2.727879_[id number] [facility] 2023-10-04 12:33:39 XwA2Gb6UeG3rWctRETRr Nw+hpJ5FrSn2B3sl7nviWQ pIMFKLnVCqg6cMq4zClchT8792-30-74D33:33:39F ormatting of this note might be different from the original.Juany, please clarify if you would like pt to only be taking Gabapentin 100mg qhs. Pt currently has orders for Gabapentin 100mg tid and Gabapentin 300mg tid.Per [facility] 08/02/23 :Mary Ann Davis is a 38 year old female presenting to clinic we will start gabapentin at this time. We will also refill her meloxicam. We will follow-up on the EMG and continue gabapentin 100 mg nightly follow-up in 1 month1. Bilateral sciatica- gabapentin 100 mg capsule; Take 1 capsule by mouth in the morning and 1 capsule at noon and 1 capsule in the evening. 55808-9Jihyhuqsl encounter VrrmCG1617-73-35L38:42:20Telephone encounter NoteTXT1.2.840.067144.1.13.104.2.7.2.42142 9|[id number] for patient khni43395-7XjkkDUZCJDBCEUDXzgboertt C-CDA narrative [id number] DLFOHBRVPXXJWYGC4352-04-51P07:42:201.2.840 .228267.1.72.3.15|1.2.840.244849.1.13.104. 2.7.2.727879_[id number] [facility] 2023-09-09 08:37:52 XnTlnb5Fmn6WixZ4J82N D8KcHadZRjRVoJRVBaHbqz 2h+5s9pnda/QSw6umslFny7118-37-48O82:37:52F ormatting of this note is different from the original.Requested PrescriptionsRefused Prescriptions Disp RefillsGABAPENTIN 300 mg capsule [Pharmacy Med Name: GABAPENTIN 300MG CAPSULES] 90 capsule 2Sig: TAKE 1 CAPSULE BY MOUTH IN THE MORNING AND AT NOON AND IN THE EVENINGRefused By: Janeth MAJOR for Refusal: Refill not appropriate 18197-6Ujddiiotn encounter EtykYW0824-71-10N33:56:16Telephone encounter NoteTXT1.2.840.110543.1.13.104.2.7.2.14911 9|[id number] for patient wofs06521-5PtokHRQHJYRPHTCRigsrspfm C-CDA narrative [address] HcyqJmklotkmmKtkjowszsECAB3670211180EKTWWU TKFVEYIQAHGKUXEA8789-10-42B18:56:161.2.840 .580862.1.72.3.15|1.2.840.972492.1.13.104. 2.7.2.727879_[id number] [facility]
--- NOTE | 2023-11-15 15:45 | RAD REPORT ---
EXAM DESCRIPTION: US - UPPER EXTREMITY VENOUS UNILATE - 11/15/2023 3:32 pm CLINICAL HISTORY: RUE DVT eval Arm swelling and edema. COMPARISON: No comparisons FINDINGS: Right upper extremity venous system was interrogated with Doppler technique. Normal flow, compressibility and augmentation was noted. There is no DVT present. IMPRESSION: No evidence of right upper extremity deep venous thrombosis.
--- NOTE | 2023-11-15 16:22 | EDPHYS ---
Physician Documentation [facility] Name: Mary Ann Fountain Age: 38 yrs Sex: Female : 1985 Arrival Date: 11/15/2023 Time: 14:33 Bed IW1 Private MD: ED Physician Wilson Molina HPI: 11/14 14:49 This 38 yrs old Female presents to ER via Unassigned with complaints of Arm ec2 Pain - Right. 14:49 Patient arrives today for evaluation of right upper extremity swelling. Patient reports ec2 that she had noted increased pain and swelling after getting deep tissue massage. States that she sustained some bruising to the area. States that she is now here because she noticed some cords in the right upper extremity. Patient reports no significant medical problems, no daily medication use, no history of coagulation issues or bleeding dyscrasias.. 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 - Social history:: Smoking status: Patient denies any tobacco usage or history of. ROS: 14:49 Constitutional: as per hpi ec2 Exam: 14:49 Constitutional: GEN: NAD Head: atraumatic Eyes: EOMI Ears: External ears are ec2 normal. CV: regular rate LUNGS: no respiratory distress ABD: non-distended SKIN: Ecchymosis noted to the right bicep, palpable hematoma appreciated. MSK: Right upper extremity with good range of motion, appropriate flexion and extension at the elbow, appropriate AB and adduction. NEURO: moves all extremities equally Vital Signs: 15:08 BP 137 / 94; Pulse 86; Resp 17; Temp 97.4; Pulse Ox 100% ; Weight 92.99 kg; Height 5 ap3 ft. 3 in. ; Pain 3/10; 16:34 Pulse 78; Resp 17; Temp 98.1; Pulse Ox 100% ; ap3 15:08 Body Mass Index 36.31 (92.99 kg, 160.02 cm) ap3 15:08 Pain Scale: Adult ap3 MDM: 14:47 Patient medically screened. ec2 14:49 Data reviewed: vital signs. ED course: Patient arrives today for evaluation of right ec2 upper extremity swelling and pain. Examination remarkable for well-appearing nontoxic dividual is otherwise in no acute distress. Will obtain ultrasound to evaluate for DVT. Considering DVT, superficial thrombophlebitis, bruising after patient's deep tissue massage as well.. 16:13 ED course: DVT ultrasound negative for DVT. Suspect hematoma causing the patient's ec2 symptoms. Will discharge home. Return precautions given.. 11/14 14:47 Order name: Extremity Venous [employer] US ec2 11/14 15:55 Order name: EDMS Administered Medications: No medications were administered Disposition Summary: 11/15/23 16:21 Discharge Ordered Notes: Location: Home ec2 Condition: Stable ec2 Diagnosis - Nontraumatic hematoma of soft tissue ec2 Followup: ec2 - With: Private Physician - When: - Reason: Re-evaluation by your physician Discharge Instructions: - Discharge Summary Sheet ap3 - Hematoma, Qnij-wn-Nbpp ec2 Forms: - Work release form ap3 - Family Work Release ap3 - Medication Reconciliation Form ec2 - Thank You Letter ec2 - Antibiotic Education ec2 - Prescription Opioid Use ec2 - Patient Portal Instructions ec2 - Leadership Thank You Letter ec2 Signatures: Dispatcher [employer] Althea Rubio RN RN ap3 Wilson Molina MD MD ec2
--- NOTE | 2023-11-15 16:22 | ER ---
Nurse's Notes [facility] Name: Mary Ann Fountain Age: 38 yrs Sex: Female : 1985 Arrival Date: 11/15/2023 Time: 14:33 Bed IW1 Private MD: Diagnosis: Nontraumatic hematoma of soft tissue Presentation: 11/14 15:08 Chief complaint: Patient states: she has been getting deep tissue massages and has been ap3 having tingling in her arms and hands since she started getting the massages. Coronavirus screen: At this time, the client does not indicate any symptoms associated with coronavirus-19. Ebola Screen: No symptoms or risks identified at this time. Initial Sepsis Screen: Does the patient meet any 2 criteria? No. Patient's initial sepsis screen is negative. Does the patient have a suspected source of infection? No. Patient's initial sepsis screen is negative. Risk Assessment: Do you want to hurt yourself or someone else? Patient reports no desire to harm self or others. Onset of symptoms is unknown. 15:08 Method Of Arrival: Ambulatory ap3 15:08 Acuity: XANDER 3 ap3 Triage Assessment: 15:10 General: Appears in no apparent distress. Behavior is calm, cooperative, appropriate ap3 for age. Pain: Complains of pain in right arm and left arm Pain. Neuro: Level of Consciousness is awake, alert, obeys commands, Oriented to person, place, time, situation, Appropriate for age. Neuro: Reports numbness in right arm and left arm. Cardiovascular: Patient's skin is warm and dry. Respiratory: Airway is patent Respiratory effort is even, unlabored, Respiratory pattern is regular, symmetrical. 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 - Social history:: Smoking status: Patient denies any tobacco usage or history of. Screenin:10 Abuse screen: Denies threats or abuse. Nutritional screening: No deficits noted. ap3 Tuberculosis screening: No symptoms or risk factors identified. 16:34 [facility] ED Fall Risk Assessment (Adult) History of falling in the last 3 months, ap3 including since admission No falls in past 3 months (0 pts) Confusion or Disorientation No (0 pts) Intoxicated or Sedated No (0 pts) Impaired Gait No (0 pts) Mobility Assist Device Used No (0 pt) Altered Elimination No (0 pt) Score/Fall Risk Level 0 - 2 = Low Risk Oriented to surroundings, Maintained a safe environment, Educated pt \T\ family on fall prevention, incl call for assistance when getting out of bed, Assessed \T\ reinforced patient's understanding of fall precautions, Provided non-skid footwear, Hourly rounding (assess needs \T\ fall precautionary measures) done, Used ambulatory aids as needed (educated on \T\ assisted with), Used gait belt as appropriate. Assessment: 16:21 General: Appears uncomfortable, Behavior is calm, cooperative, appropriate for age. ap3 Pain: Complains of pain in right arm. Musculoskeletal: Circulation, motion, and sensation intact. Capillary refill < 3 seconds. Vital Signs: 15:08 BP 137 / 94; Pulse 86; Resp 17; Temp 97.4; Pulse Ox 100% ; Weight 92.99 kg; Height 5 ap3 ft. 3 in. ; Pain 3/10; 16:34 Pulse 78; Resp 17; Temp 98.1; Pulse Ox 100% ; ap3 15:08 Body Mass Index 36.31 (92.99 kg, 160.02 cm) ap3 15:08 Pain Scale: Adult ap3 ED Course: 14:37 Patient arrived in ED. im 14:37 Wilson Molina MD is Attending Physician. ec2 15:09 Triage completed. ap3 15:10 Arm band placed on right wrist. ap3 16:03 US In Process Unspecified. EDMS 16:33 Provided Education on: discharge instructions. ap3 16:33 Patient has correct armband on for positive identification. ap3 16:33 No provider procedures requiring assistance completed. Patient did not have IV access ap3 during this emergency room visit. Administered Medications: No medications were administered Medication: 16:33 VIS not applicable for this client. ap3 Outcome: 16:21 Discharge ordered by . ec2 16:33 Discharged to home ambulatory, ap3 16:33 Condition: good 16:33 Discharge instructions given to patient, Instructed on discharge instructions, follow up and referral plans. Demonstrated understanding of instructions, follow-up care, 16:34 Patient left the ED. ap3 Signatures: Dispatcher [employer] Althea Rubio RN RN ap3 Veronique Headley Edwin, MD MD ec2
[2023-11-15 18:36] VITALS: BP 137/94; TEMP 98.1; O2SAT 100
== END ==
LOC: ER 14:33
DX: M79.81 Nontraumatic hematoma of soft tissue (principal); Z88.0 Allergy status to penicillin
CPT/HCPCS: 93971